=== PATIENT | female | born 1980 | race Caucasian/White ===

== ENCOUNTER 2016-09-15 21:26 | Emergency (ER) | payer BC ==
[2016-09-15 21:32] VITALS: BP 150/69
--- NOTE | 2016-09-15 21:42 | UC ---
Respiratory Complaint HPI - History of Current Complaint Chief Complaint: UCRespiratory Stated Complaint: SINUS Time Seen by Provider: 09/15/16 21:35 Hx Obtained From: Patient Hx Last Menstrual Period: 2 weeks ago ?: No Onset/Duration: Gradual Onset - congestion, cough, sore throat., Lasting Weeks - 2, Worse Since - yesterday with sinus pressure pain and earache. Timing: Constant Severity Initially: Mild Severity Currently: Moderate Character: Cough: Nonproductive Aggravating Factors: Recumbent Position Alleviating Factors: Bronchodilator Associated Signs And Symptoms: Positive: Chills, Wheezing, Nasal Congestion, Sinus Discomfort Related History: Seasonal Allergies - Risk Factors Pulmonary Embolism Risk Factors: Negative Cardiac Risk Factors: Negative Pseudomonas Risk Factors: Negative Tuberculosis Risk Factors: Negative - Allergies/Home Medications Allergies/Adverse Reactions: Allergies Allergy/AdvReac Type Severity Reaction Status Date / Time [facility] [[facility] Allergy Intermediate Hives Verified 09/15/16 21:32 Minocycline Allergy Hives Verified 09/15/16 21:32 PMH/Surg Hx/FS Hx/Imm Hx Respiratory History Of: Reports: Asthma - Surgical History Surgical History: None - Family History Known Family History: Positive: Hypertension, Respiratory Disease - asthma Negative: Cardiac Disease, Diabetes - Social History Occupation: Employed Full-time Lives: With Family Alcohol Use: Occasionally Substance Use Type: None Smoking Status (MU): Never Smoked Tobacco Have You Smoked in the Last Year: No Review of Systems Constitutional: Other - sweats. ENT: Sore Throat, Ear Ache, Nasal Discharge Respiratory: Cough All Other Systems Reviewed And Are Negative: Yes Physical Exam Triage Information Reviewed: Yes Appearance: No Pain Distress, Ill-Appearing - mild, Obese Vital Signs: Initial Vital Signs Temp 98.5 F 09/15/16 21:29 Pulse 93 09/15/16 21:29 Resp 16 09/15/16 21:29 BP 150/69 09/15/16 21:29 Pulse Ox 99 09/15/16 21:29 Vital Signs Reviewed: Yes Eyes: Positive: Conjunctiva Clear ENT: Positive: Pharynx normal, TMs normal Neck exam: Normal Respiratory: Positive: Wheezing - diffuse expiratory wheeze with cough Cardiovascular Exam: Normal Musculoskeletal Exam: Normal Neurological Exam: Normal Psychological Exam: Normal Skin Exam: Normal UC Diagnostic Evaluation - Laboratory O2 Sat by Pulse Oximetry: 99 Respiratory Course/Dx - Differential Dx/Diagnosis Differential Diagnosis/HQI/PQRI: Asthma, Lower Resp Infection, Sinusitis Provider Diagnoses: Acute URI. Acute sinusitis. Asthma with acute exacerbation. Discharge - Discharge Plan Condition: Stable Disposition: HOME Prescriptions: Albuterol HFA INHALER* [Ventolin HFA Inhaler*] 2 puff INH Q4H PRN #1 mdi PRN Reason: Wheezing Amoxicillin (*) [Amoxicillin 875 MG (*)] 875 mg PO BID #20 tab predniSONE TAB* [Deltasone TAB*] 20 mg PO DAILY #18 tab Patient Education Materials: Upper Respiratory Infection (ED), Bronchospasm (ED ), Prednisone (By mouth), Sinusitis (ED), Amoxicillin (By mouth) Referrals: Ana Paula Tafoya MD [Primary Care Provider] - 5 Days (May need to recheck blood pressure.)
[2016-09-15] MEDS ORDERED: Amoxicillin CAP* 500 MG PO ONE (21:45)
== END 2016-09-15 21:57 | disposition home or self-care (01) ==
LOC: UCCORT 21:26
DX: J06.9 Acute upper respiratory infection, unspecified (principal); J01.90 Acute sinusitis, unspecified; J45.901 Unspecified asthma with (acute) exacerbation; E66.9 Obesity, unspecified; Z88.1 Allergy status to other antibiotic agents
CPT/HCPCS: 99212; A9270-GY; G0463

== ENCOUNTER 2017-04-19 07:08 | Emergency (ER) | payer BC ==
[2017-04-19] MEDS ORDERED: predniSONE TAB* 20 MG PO ONE (07:33)
[2017-04-19] MEDS ORDERED: Albuterol 2.5 MG/3 ML NEB.SOL* (0.083%) INH ONE (07:33)
[2017-04-19] MEDS ORDERED: Ipratropium 0.5MG/2.5ML NEB* 0.5 MG/2.5 ML NEB.SOLN INH ONE (07:33)
--- NOTE | 2017-04-19 07:43 | UC ---
Respiratory Complaint HPI - HPI Summary HPI Summary: C/O URI x 1 week. Worsening since yesterday. Productive cough. Has asthma. Some sinus pain. - History of Current Complaint Chief Complaint: UCRespiratory Stated Complaint: COUGH CONGESTION Time Seen by Provider: 04/19/17 07:31 Hx Obtained From: Patient Hx Last Menstrual Period: 04/09/17 ?: No Onset/Duration: Sudden Onset, Lasting Weeks - 1, Worse Since - yesterday Timing: Constant Severity Initially: Mild Severity Currently: Severe Character: Cough: Productive - green thick sputum Aggravating Factors: Deep Breaths, Recumbent Position Alleviating Factors: Bronchodilator - no longer helping as well. Associated Signs And Symptoms: Positive: Dyspnea, Wheezing, URI, Nasal Congestion, Hoarseness, Sinus Discomfort - Allergies/Home Medications Allergies/Adverse Reactions: Allergies Allergy/AdvReac Type Severity Reaction Status Date / Time Cefaclor [From [facility]] Allergy Intermediate Hives Verified 04/19/17 07:16 Minocycline Allergy Hives Verified 04/19/17 07:16 Home Medications: Home Medications Levocetirizine Dihydrochloride [Xyzal Allergy 24Hr] 5 mg PO DAILY 04/19/17 [ History Confirmed 04/19/17] PMH/Surg Hx/FS Hx/Imm Hx Respiratory History: Asthma - Surgical History Surgical History: None - Family History Known Family History: Positive: Hypertension, Respiratory Disease - asthma Negative: Cardiac Disease, Diabetes - Social History Occupation: Employed Full-time Lives: With Family Alcohol Use: Rare Substance Use Type: None Smoking Status (MU): Never Smoked Tobacco Have You Smoked in the Last Year: No - Immunization History Most Recent Influenza Vaccination: MAR 2017 Review of Systems Constitutional: Fatigue ENT: Sore Throat, Sinus Pain/Tenderness Respiratory: Shortness Of Breath, Cough Is Patient Immunocompromised?: No All Other Systems Reviewed And Are Negative: Yes Physical Exam Triage Information Reviewed: Yes Appearance: No Pain Distress, Ill-Appearing, Obese Vital Signs: Initial Vital Signs Temp 98.4 F 04/19/17 07:19 Pulse 95 04/19/17 07:19 Resp 20 04/19/17 07:19 BP 129/66 04/19/17 07:19 Pulse Ox 98 04/19/17 07:19 Vital Signs Reviewed: Yes Eyes: Positive: Conjunctiva Clear ENT: Positive: Pharyngeal erythema, TMs normal Neck exam: Normal Respiratory: Positive: Lungs clear, Wheezing - expiratory wheeze with coughing Cardiovascular Exam: Normal Musculoskeletal Exam: Normal Neurological Exam: Normal Psychological Exam: Normal Skin Exam: Normal UC Diagnostic Evaluation - Laboratory O2 Sat by Pulse Oximetry: 98 Re-Evaluation - Re-Evaluation First Eval Re-Evaluation Time: 08:03 Change: Improved - Patient feels breathing is better after the nebulizer Respiratory Course/Dx - Differential Dx/Diagnosis Differential Diagnosis/HQI/PQRI: Asthma, Laryngitis, Lower Resp Infection, Sinusitis Provider Diagnoses: Acute URI. Acute sinusitis. Asthma with acute exacerbation Discharge - Discharge Plan Condition: Stable Disposition: HOME Prescriptions: Clarithromycin TAB* [Biaxin 500 MG TAB*] 500 mg PO BID #20 tab predniSONE TAB* [Deltasone TAB*] 20 mg PO DAILY #18 tab Patient Education Materials: Upper Respiratory Infection (ED), Sinusitis (ED), Clarithromycin (By mouth), Asthma (ED), Prednisone (By mouth) Referrals: Ana Paula Tafoya MD [Primary Care Provider] -
[2017-04-19 08:07] VITALS: BP 129/66
== END 2017-04-19 08:10 | disposition home or self-care (01) ==
LOC: UCCORT 07:08
DX: J06.9 Acute upper respiratory infection, unspecified (principal); J01.90 Acute sinusitis, unspecified; J45.901 Unspecified asthma with (acute) exacerbation; E66.9 Obesity, unspecified; Z88.1 Allergy status to other antibiotic agents
CPT/HCPCS: 99211; G0463; J7512; J7644

== ENCOUNTER 2018-01-05 08:31 | Emergency (ER) | payer BC ==
--- NOTE | 2018-01-05 08:42 | UC ---
Headache HPI - HPI Summary HPI Summary: 37 yo female presents with headache. She tells me that she has a hx of migraines at least once or twice a month and usually manages these with rest and OTC medications. She remembers one time many years ago that she had a very bad migraine and ended up having a sinus infection. 3 days ago she woke up with a migraine, which she says is her typical onset, focused on the b/l temporal regions. She took OTC excedrin with mild relief for the first few hours, but her headache returned. She rested, but her headache did not resolve. Yesterday her headache persisted, so she took more excedrin - again with mild relief for a few hours, but her headache returned. this morning her headache is still present - so she decided to seek medical eval. She endorses some sinus congestion over the last week, but wasn't sure if it was allergies or something more. Denies fever, chills, SOB, chest pain, palpitation, abdominal pain, n/v, vision changes, weakness, or numbness. - History Of Current Complaint Stated Complaint: HEADACHE Time Seen by Provider: 01/05/18 08:41 Hx Obtained From: Patient Hx Last Menstrual Period: 2 weeks ago Onset/Duration: Sudden Onset Pain Intensity: 7 Pain Scale Used: 0-10 Numeric Timing: Constant Character: Migraine Location of Headache: Temporal - Allergies/Home Medications Allergies/Adverse Reactions: Allergies Allergy/AdvReac Type Severity Reaction Status Date / Time [facility] Allergy Hives Verified 01/05/18 09:15 minocycline Allergy Hives Verified 01/05/18 09:15 PMH/Surg Hx/FS Hx/Imm Hx - Additional Past Medical History Additional PMH: Migraines - Surgical History Surgical History: None - Family History Known Family History: Positive: Hypertension, Respiratory Disease - asthma Negative: Cardiac Disease, Diabetes - Social History Lives: With Family Alcohol Use: Occasionally Substance Use Type: None Smoking Status (MU): Never Smoked Tobacco Have You Smoked in the Last Year: No - Immunization History Most Recent Influenza Vaccination: MAR 2017 Review of Systems Constitutional: Negative Skin: Negative Eyes: Negative ENT: Sinus Congestion, Sinus Pain/Tenderness Respiratory: Negative Cardiovascular: Negative Gastrointestinal: Negative Genitourinary: Negative Neurovascular: Negative Musculoskeletal: Negative Neurological: Headache Psychological: Negative All Other Systems Reviewed And Are Negative: Yes Physical Exam - Summary Physical Exam Summary: GENERAL: Obese. NAD. SKIN: No rashes, sores, or open wounds. HEENT: Head: AT/NC Eyes: PERRLA. EOM intact. Conjunctiva clear without inflammation or discharge. Ears: Hearing grossly normal. TMs intact, no bulging, erythema, or edema. Nose: Nasal mucosa pink and moist. TTP maxillary > frontal sinus. Throat: Posterior oropharynx without exudates, erythema, or tonsillar enlargement. Uvula midline. NECK: Supple. Nontender. No lymphadenopathy. CHEST: CTAB. No r/r/w. No accessory muscle use. Breathing comfortably and in no distress. CV: RRR. Without m/r/g. Pulses intact. Brisk cap refill. MSK: FROM in B/L UEs and LEs with symmetric strength. NEURO: A&Ox3. 3 word recall, remote, recent memory, ability to follow 2-step directions, and attention intact. CN II XII grossly intact. [id number] are intact. Gait with normal base. Romberg: maintains balance, no pronator drift. Normal speech. No facial drooping. PSYCH: Age appropriate behavior. Triage Information Reviewed: Yes Vital Signs: Vital Signs: Temp Pulse Resp BP Pulse Ox 98.8 F 79 12 120/78 100 01/05/18 09:12 01/05/18 09:12 01/05/18 09:12 01/05/18 09:45 01/05/18 09:12 Vital Signs Reviewed: Yes Headache Course/Dx - Course Course Of Treatment: Toradol 60mg given in clinic. Rx for amoxicillin for potential sinus infection. Advised to rest and continue drinking fluids. - Differential Dx/Diagnosis Provider Diagnoses: Migraine Discharge - Sign-Out/Discharge Documenting (check all that apply): Patient Departure - Discharge Plan Condition: Stable Disposition: HOME Patient Education Materials: Migraine Headache (ED) Referrals: Ana Paula Tafoya MD [Primary Care Provider] - Additional Instructions: If you develop a fever, shortness of breath, chest pain, new or worsening symptoms - please call your PCP or go to the ED. - Billing Disposition and Condition Condition: STABLE Disposition: Home
[2018-01-05] MEDS ORDERED: Ketorolac INJ* 60 MG/2 ML VIAL IM ONE (08:51)
[2018-01-05 09:46] VITALS: BP 120/78
== END 2018-01-05 09:45 | disposition home or self-care (01) ==
LOC: UCEAST 08:31
DX: G43.909 Migraine, unspecified, not intractable, without status migrainosus (principal); Z88.6 Allergy status to analgesic agent; Z82.49 Family history of ischemic heart disease and other diseases of the circulatory system; Z82.5 Family history of asthma and other chronic lower respiratory diseases
CPT/HCPCS: 90471; 99212; G0463; J1885

== ENCOUNTER 2018-04-29 11:40 | Emergency (ER) | payer BC ==
--- OUTSIDE RECORDS SUMMARY | 2018-04-29 12:17 | XMS REPORT | Continuity of Care Document ---
:1980 External Reference #:[id number] Author Name Katina Davey, HOSIERY BAGGER Address [address] [place] [address] Care Team Providers Name Role Phone Ana Paula Tafoya MD Care Team Information Residence Counselor Unavailable Payers Type Date Identification Numbers Payment Provider Subscriber Policy Number: [id number] [facility] Plan Galdino Omalley Group Number: [id number] [address] PayID: [id number] [place] [address] Effective: 2015 Policy Number: [id number] [employer] Galdino Omalley Expires: 2015 PayID: [id number] [address] [place] [address] Advance Directives Description No Information Available Problems Date Description Provider Status Onset: 04/19/2014 Mild major depression, single episode Ana Paula Tafoya MD Active Onset: 05/10/2013 Vitamin D deficiency Ana Paula Tafoya MD Active Onset: 05/10/2013 Elevated blood-pressure reading without Ana Paula Tafoya MD Active diagnosis of hypertension Onset: 12/15/2007 Allergic rhinitis due to pollen Ana Paula Tafoya MD Active Onset: 12/15/2007 Migraine with typical aura Ana Paula Tafoya MD Active Onset: 12/21/2015 Mild persistent asthma Ana Paula Tafoya MD Active Onset: 02/11/2018 Obesity Ana Paula Tafoya MD Active Onset: 02/11/2018 Electrocardiogram abnormal Ana Paula Tafoya MD Active Onset: 09/03/2017 Hypoglycemia Ana Paula Tafoya MD Active Onset: 09/03/2017 Heartburn Ana Paula Tafoya MD Active Onset: 07/31/2017 Lumbosacral spondylosis without Ana Paula Tafoya MD Active myelopathy Family History Date Family Member(s) Problem(s) Comments Onset: (age 47 Father Alcoholism Years) Mother Hypertension Mother Obesity Children 1 Siblings 7 Patient is the oldest of eight children : (age 27 First Brother due to Crushed Years) by a tree First Brother Hypertension Onset: (age 6 Fourth Brother Leukemia Years) Maternal Grandfather Stroke Onset: (age 63 Maternal Grandmother Emphysema Years) Social History Type Date Description Comments Sex Unknown Education Higest level completed, Bachelor's Degree Education Currently working on [employer] science Master's Degree Marital Status Lives With Daughter 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[employer]; 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 Hand Dominance RIGHT-handed Tobacco Use Start: Unknown Never Smoked Cigarettes Smoking Status Reviewed: 04/04/18 Never Smoked Cigarettes ETOH Use Rarely consumes alcohol Tobacco Use Start: Unknown Patient has never smoked Exercise Type/Frequency Does aerobics sporadically Contraceptive Methods Current methods include condoms Allergies, Adverse Reactions, Alerts Date Description Reaction Status Severity Comments 08/27/2014 Ceclor Active Hives 09/28/2011 Tetracyclines & Related Hives (From Web Specialist Active Office) Medications Medication Date Status Form Strength Qnty SIG Indications Ordering Provider Amoxicillin/Clav 04/04 Hx Tablets 875-125mg 20tab 1 by mouth J01.90 Digiovann ulanate s every 12 a, Potassium - hours for Katina, 04/14 10 days Sumatriptan 02/11 Active Tablets 50mg 27tab 1 by mouth G43.109 Adriane Tafoya s at onset of MD Ana Paula migraine - may repeat in 2 hours. Furosemide 11/06 Active Tablets 20mg 30tab 1 by mouth R60.9 Michelet s every day MD Ana Paula as needed Fluoxetine HCL 06/07 Active Capsules 40mg 30cap take one F32.0 s capsule by MD Ana Paula mouth every day. Asmanex 11/03 Active Aerosol 220mcg/In 1unit use 1 Canelo Tafoya h s inhalation MD Ana Paula Metered Doses daily (discard 45 days after opening) - Mometasone Active Suspension 50mcg/Act 51gm 2 sprays J30.1 Michelet Furoate / each MD Ana Paula nostril every day Famotidine Active Tablets 20mg one by R12 Unknown /0000 mouth once to twice a day as needed Celecoxib Active Capsules 200mg 30cap 1 by mouth M47.817 Michelet, / s once daily MD Ana Paula as needed Excedrin Active Tablets 250-250-6 one tab Unknown Migraine / 5mg daily as needed Cyclobenzaprine 02/25 Hx Tablets 10mg 30tab take 1 Digiovann HCL /2016 s tablet by a, - mouth every Katina, 09/03 8 hours as needed for pain Naproxen Sodium 02/25 Hx Tablets 550mg 60tab 1 by mouth Digiovann /2016 s every 12 a, - hours for 2 Katina, 07/31 weeks then HOSIERY BAGGER as needed Amoxicillin/Clav 02/07 Hx Tablets 875-125mg 20tab 1 by mouth J01.90 Taz ulanate s twice a day Ansley barroso Potassium - MD 02/17 Azithromycin 07/25 Hx Tablets 500mg 7tabs 1 by mouth J01.90 Ely, every day Grady Atkinson DO 01/31 Azithromycin 06/22 Hx Tablets 250mg 6tabs 2 by mouth J01.90 , today, then MD Ana Paula - 1 by mouth 12/20 daily x more days Fluticasone 11/15 Hx Suspension 50mcg/Act 16uni instill 2 Michelet Propionate ts sprays in MD Ana Paula - each 09/03 nostril /2017 every day as needed Butalbital/Aceta 11/03 Hx Tablets 50-325-40 30tab 1 tap by G43.109 Michelet minophen/Caffein /2014 mg s mouth q2 MD Ana Paula e - hours as 02/11 headache Fluoxetine HCL 11/03 Hx Capsules 10mg 90cap 3 po daily F32.0 Michelet s x 2 weeks MD Ana Paula - then if 06/07 doing well, 2 po daily x 2 weeks then if doing well, 1 po daily Amoxicillin 08/27 Hx Tablets 875mg 20tab 1 by mouth 461.9 Digiovann s twice a day a, - for 10 days Freddie 09/06 Asmanex 07/11 Hx Aerosol 220mcg/In 1unit inhale 1 Canelo Tafoya 30 h s puff every MD Ana Paula Tered Doses - day 11/03 Flonase 05/21 Hx Suspension 50mcg/Act 16uni instill 2 ts sprays in MD Ana Paula - each 06/07 nostril every day as needed Toprol XL 04/16 Hx Tablets ER 25mg 30tab 1 PO qd Michelet 24HR s MD Ana Paula - 06/07 Arcet 02/23 Hx Tablets 30tab take 1 Michelet s tablet by MD Ana Paula - mouth every 11/03 2 hours as needed for migraine(ma x daily 6 tablets) Astelin 06/09 Hx Solution 137mcg/Sp 30uni use 2 ray ts sprays in MD Ana Paula - each 06/07 nostr twice daily as needed Fexofenadine HCL 06/09 Hx Tablets 60mg 60tab 1bid - Take s One Tablet MD Ana Paula - By Mouth 09/03 Twice Daily Fluoxetine HCL Hx Capsules 40mg 90cap 1 by mouth 296.21 Unknown /0000 s every day - 11/03 Methocarbamol Hx Tablets 500mg 1 by mouth Unknown /0000 tid as - needed 09/03 Immunizations CPT Code Status Date Vaccine Reaction Lot # [id number] Given 03/04/2018 Afluria Or Fluvirin Flu Vac Intramuscular 19963 Given 04/02/2017 Afluria Or Fluvirin Flu Vac Intramuscular 37176 Given 01/25/2016 MMR Virus Immunization [id number] 13601 Given 05/06/2012 Tdap (Adacel) Ages 7 And Above VIS DATE 06/25/11 Only 98045 Given 04/16/2010 Afluria Or Fluvirin Flu Vac Intramuscular 50417 Given 05/21/2004 Immunization Td 7 Yrs Or Older Vital Signs Date Vital Result Comment 04/04/2018 10:03am Body Temperature 99.3 F tympanic Weight 344.44 lb Heart Rate 80 /min BP Systolic 130 mmHg BP Diastolic 86 mmHg Respiratory Rate 18 /min Height 66.75 inches 5'6.75" 02/11/18 ,PREANALYTICS TEAM LEAD O2 % BldC Oximetry 97 % Room Air BMI (Body Mass Index) 54.3 kg/m2 02/11/2018 9:10am Weight 341.00 lb Heart Rate 78 /min BP Systolic 128 mmHg BP Diastolic 84 mmHg Respiratory Rate 16 /min Height 66.75 inches 5'6.75" 02/11/18 SA,PREANALYTICS TEAM LEAD BMI (Body Mass Index) 53.8 kg/m2 Last Menstrual Period [id number] 02/11/18 SA,PREANALYTICS TEAM LEAD 11/06/2017 2:24pm Weight 366.00 lb Heart Rate 80 /min BP Systolic 130 mmHg BP Diastolic 86 mmHg Respiratory Rate 18 /min Height 67.5 inches 5'7.50" 07/31/17 BMI (Body Mass Index) 56.5 kg/m2 09/03/2017 10:28am Weight 331.00 lb Heart Rate 84 /min BP Systolic 128 mmHg BP Diastolic 88 mmHg Respiratory Rate 18 /min Height 67.5 inches 5'7.50" 07/31/17 BMI (Body Mass Index) 51.1 kg/m2 07/31/2017 9:16am Weight 329.00 lb Heart Rate 80 /min BP Systolic 132 mmHg BP Diastolic 82 mmHg Respiratory Rate 18 /min Height 67.5 inches 5'7.50" 07/31/17 BMI (Body Mass Index) 50.8 kg/m2 02/25/2017 9:16am Body Temperature 97.5 F Weight 314.38 lb Heart Rate 88 /min BP Systolic 132 mmHg BP Diastolic 76 mmHg Respiratory Rate 18 /min Height 67.5 inches 5'7.50" 01/31/17 BMI (Body Mass Index) 48.5 kg/m2 02/07/2017 3:08pm Body Temperature 98.7 F Weight 316.00 lb Heart Rate 91 /min BP Systolic 120 mmHg BP Diastolic 76 mmHg Respiratory Rate 18 /min Height 67.5 inches 5'7.50" 01/31/17 O2 % BldC Oximetry 97 % BMI (Body Mass Index) 48.8 kg/m2 01/31/2017 1:34pm Weight 305.00 lb Heart Rate 76 /min BP Systolic 122 mmHg BP Diastolic 72 mmHg Respiratory Rate 18 /min Height 67.5 inches 5'7.50" 01/31/17 BMI (Body Mass Index) 47.1 kg/m2 07/25/2016 3:59pm Body Temperature 99.8 F Weight 305.00 lb Heart Rate 90 /min BP Systolic 140 mmHg BP Diastolic 72 mmHg BP Systolic Recheck 130 mmHg BP Diastolic Recheck 72 mmHg Respiratory Rate 24 /min Height 67.5 inches 5'7.50" BMI (Body Mass Index) 47.1 kg/m2 01/25/2016 4:17pm Weight 301.00 lb Heart Rate 104 /min BP Systolic 122 mmHg BP Diastolic 80 mmHg Respiratory Rate 20 /min Height 67.5 inches 5'7.50" BMI (Body Mass Index) 46.4 kg/m2 12/21/2015 4:05pm Weight 301.00 lb Heart Rate 68 /min BP Systolic 112 mmHg BP Diastolic 80 mmHg Respiratory Rate 18 /min Height 67.5 inches 5'7.50" BMI (Body Mass Index) 46.4 kg/m2 06/22/2015 10:03am Body Temperature 98.9 F Weight 293.00 lb Heart Rate 96 /min BP Systolic 120 mmHg BP Diastolic 70 mmHg Respiratory Rate 18 /min Height 67.5 inches 5'7.50" O2 % BldC Oximetry 96 % BMI (Body Mass Index) 45.2 kg/m2 06/07/2015 10:24am Weight 290.00 lb Heart Rate 76 /min BP Systolic 130 mmHg BP Diastolic 78 mmHg Respiratory Rate 18 /min Height 67.5 inches 5'7.50" BMI (Body Mass Index) 44.7 kg/m2 11/03/2014 8:23am Weight 280.00 lb Heart Rate 68 /min BP Systolic 112 mmHg BP Diastolic 72 mmHg Respiratory Rate 18 /min Height 67.5 inches 5'7.50" BMI (Body Mass Index) 43.2 kg/m2 08/27/2014 11:24am Body Temperature 98.9 F Weight 296.25 lb Heart Rate 72 /min BP Systolic 120 mmHg BP Diastolic 72 mmHg Respiratory Rate 18 /min 04/19/2014 8:05am Weight 290.00 lb Down #40 Heart Rate 72 /min BP Systolic 130 mmHg BP Diastolic 80 mmHg Respiratory Rate 18 /min Height 67 inches 5'7" 09/21/2013 8:20am BP Systolic 122 mmHg BP Diastolic 82 mmHg 09/21/2013 8:20am Weight 330.00 lb Heart Rate 78 /min BP Systolic 150 mmHg BP Diastolic 82 mmHg Respiratory Rate 24 /min Height 67 inches 5'7" 05/10/2013 2:38pm Weight 338.00 lb Heart Rate 80 /min BP Systolic 134 mmHg BP Diastolic 80 mmHg Respiratory Rate 18 /min Height 67.25 inches 5'7.25" (Done On 06/09/12) 04/16/2013 8:11am BP Systolic 132 mmHg BP Diastolic 90 mmHg 04/16/2013 8:11am Weight 352.00 lb Heart Rate 92 /min BP Systolic 134 mmHg BP Diastolic 92 mmHg Respiratory Rate 20 /min Height 67.25 inches 5'7.25" (Done On 06/09/12) 07/25/2012 9:20am Body Temperature 97.8 F Weight 328.00 lb Heart Rate 80 /min BP Systolic 132 mmHg BP Diastolic 80 mmHg Respiratory Rate 20 /min Height 67.25 inches 5'7.25" 06/09/2012 3:27pm BP Systolic 120 mmHg BP Diastolic 78 mmHg 06/09/2012 3:27pm Body Temperature 98.9 F Weight 334.00 lb Heart Rate 112 /min BP Systolic 166 mmHg BP Diastolic 100 mmHg Respiratory Rate 20 /min Height 67.25 inches 5'7.25" O2 % BldC Oximetry 98 % 05/27/2012 9:18am Body Temperature 99.4 F Weight 331.00 lb Heart Rate 96 /min BP Systolic 136 mmHg BP Diastolic 70 mmHg Respiratory Rate 18 /min Height 66.5 inches 5'6.50" (Done On 08/07/11) O2 % BldC Oximetry 97 % 05/06/2012 8:30am Weight 327.00 lb Heart Rate 100 /min BP Systolic 132 mmHg BP Diastolic 80 mmHg Respiratory Rate 18 /min Height 66.5 inches 5'6.50" (Done On 08/07/11) 02/13/2012 3:52pm Body Temperature 98.6 F Weight 327.00 lb Heart Rate 76 /min BP Systolic 130 mmHg BP Diastolic 70 mmHg Respiratory Rate 18 /min 09/28/2011 9:47am Body Temperature 97.0 F Weight 322.00 lb Heart Rate 78 /min BP Systolic 124 mmHg BP Diastolic 82 mmHg Respiratory Rate 19 /min O2 % BldC Oximetry 98 % Ra 2011 3:47pm Body Temperature 98.2 F Weight 332.50 lb Heart Rate 80 /min BP Systolic 108 mmHg BP Diastolic 74 mmHg Respiratory Rate 20 /min Height 66.5 inches 5'6.50" O2 % BldC Oximetry 97 % 05/23/2011 1:42pm Body Temperature 98.9 F Weight 335.00 lb Heart Rate 104 /min BP Systolic 146 mmHg BP Diastolic 84 mmHg Respiratory Rate 20 /min Height 67 inches 5'7" (Done On 08/09/10) O2 % BldC Oximetry 98 % 05/03/2011 8:23am Weight 333.00 lb Heart Rate 102 /min BP Systolic 132 mmHg BP Diastolic 80 mmHg Respiratory Rate 18 /min Height 67 inches 5'7" (Done On 08/09/10) 01/21/2011 9:36am Body Temperature 97.7 F Weight 315.00 lb Heart Rate 90 /min BP Systolic 128 mmHg BP Diastolic 86 mmHg Respiratory Rate 17 /min Height 67 inches 5'7" (Done On 08/09/10) O2 % BldC Oximetry 98 % Ra 12/06/2010 9:19am Weight 312.00 lb Heart Rate 84 /min BP Systolic 130 mmHg BP Diastolic 84 mmHg Respiratory Rate 20 /min Height 67 inches 5'7" (Done On 08/09/10) 08/09/2010 11:35am Body Temperature 98.4 F Weight 332.00 lb Heart Rate 100 /min BP Systolic 144 mmHg BP Diastolic 84 mmHg Respiratory Rate 20 /min Height 67 inches 5'7" O2 % BldC Oximetry 98 % 05/19/2010 10:07am Body Temperature 97.8 F Weight 336.00 lb Heart Rate 80 /min BP Systolic 136 mmHg BP Diastolic 76 mmHg 04/16/2010 4:07pm BP Systolic 132 mmHg BP Diastolic 82 mmHg 04/16/2010 4:07pm Weight 337.00 lb Heart Rate 88 /min BP Systolic 152 mmHg BP Diastolic 84 mmHg Respiratory Rate 18 /min Height 67 inches 5'7" 03/17/2010 9:50am Body Temperature 98.1 F Weight 330.00 lb Heart Rate 76 /min BP Systolic 122 mmHg l arm BP Diastolic 74 mmHg l arm Respiratory Rate 18 /min 09/13/2009 9:36am Body Temperature 97.6 F Weight 342.00 lb Heart Rate 92 /min BP Systolic 120 mmHg BP Diastolic 78 mmHg Respiratory Rate 20 /min O2 % BldC Oximetry 98 % 08/28/2009 11:36am Body Temperature 98.6 F Weight 344.00 lb Heart Rate 102 /min BP Systolic 130 mmHg BP Diastolic 80 mmHg Respiratory Rate 20 /min Height 67 inches 5'7" O2 % BldC Oximetry 97 % 06/09/2009 4:04pm Body Temperature 98.4 F Weight 341.00 lb Heart Rate 88 /min BP Systolic 132 mmHg RIGHT BP Diastolic 88 mmHg RIGHT Respiratory Rate 16 /min 05/20/2009 9:30am Body Temperature 98.9 F Weight 237.00 lb Heart Rate 78 /min BP Systolic 128 mmHg BP Diastolic 80 mmHg Respiratory Rate 24 /min O2 % BldC Oximetry 98 % 07/26/2008 10:08am Weight 304.00 lb Heart Rate 84 /min BP Systolic 118 mmHg BP Diastolic 80 mmHg Respiratory Rate 18 /min 07/15/2008 11:19am Body Temperature 98.5 F Weight 299.00 lb Heart Rate 104 /min BP Systolic 130 mmHg BP Diastolic 74 mmHg Respiratory Rate 20 /min Height 67 inches 5'7" 03/24/2008 8:30am Weight 280.00 lb Heart Rate 80 /min BP Systolic 108 mmHg BP Diastolic 70 mmHg Respiratory Rate 15 /min Height 67 inches 5'7" 12/15/2007 8:25am Weight 269.00 lb Down 9 LBS Heart Rate 84 /min BP Systolic 120 mmHg BP Diastolic 80 mmHg Height 67 inches 5'7" 10/01/2007 9:35am Body Temperature 98.3 F Weight 278.00 lb Heart Rate 84 /min BP Systolic 132 mmHg BP Diastolic 82 mmHg Respiratory Rate 22 /min Height 67 inches 5'7" 09/01/2007 8:32am Weight 292.00 lb Heart Rate 88 /min BP Systolic 140 mmHg BP Diastolic 74 mmHg Height 67 inches 5'7" 08/15/2007 9:27am Body Temperature 97.8 F Weight 298.00 lb Heart Rate 74 /min BP Systolic 116 mmHg BP Diastolic 68 mmHg Respiratory Rate 18 /min Height 67 inches 5'7" O2 % BldC Oximetry 98 % 05/25/2007 10:01am Weight 307.00 lb Heart Rate 74 /min BP Systolic 122 mmHg BP Diastolic 74 mmHg Respiratory Rate 16 /min Height 67 inches 5'7" 02/03/2007 11:15am Body Temperature 98.0 F Weight 302.00 lb Heart Rate 100 /min BP Systolic 114 mmHg L/LG BP Diastolic 72 mmHg L/LG Respiratory Rate 20 /min Height 67 inches 5'7" 08/26/2006 9:15am Body Temperature 97.4 F Weight 296.00 lb Heart Rate 88 /min BP Systolic 11 mmHg BP Diastolic 64 mmHg Respiratory Rate 14 /min Height 67 inches 5'7" 07/15/2006 10:30am Body Temperature 98.2 F Weight 288.00 lb Heart Rate 92 /min BP Systolic 110 mmHg BP Diastolic 70 mmHg Respiratory Rate 16 /min Height 67 inches 5'7" 06/26/2006 9:23am Body Temperature 97.0 F Weight 285.00 lb Heart Rate 84 /min BP Systolic 114 mmHg BP Diastolic 74 mmHg Respiratory Rate 20 /min Height 67 inches 5'7" 04/07/2006 9:34am Body Temperature 97.3 F Weight 279.00 lb Heart Rate 88 /min BP Systolic 120 mmHg BP Diastolic 74 mmHg Respiratory Rate 20 /min O2 % BldC Oximetry 96 % Room Air @ Rest 03/06/2006 11:31am Body Temperature 98.4 F Weight 266.00 lb Heart Rate 84 /min BP Systolic 110 mmHg BP Diastolic 70 mmHg Respiratory Rate 14 /min 02/25/2006 3:23pm Body Temperature 99.5 F Weight 270.00 lb Heart Rate 84 /min BP Systolic 110 mmHg BP Diastolic 76 mmHg Respiratory Rate 18 /min 10/02/2005 10:40am Weight 284.00 lb Heart Rate 76 /min BP Systolic 100 mmHg BP Diastolic 72 mmHg Respiratory Rate 14 /min 09/18/2005 11:27am Body Temperature 97.9 F Weight 281.00 lb Heart Rate 80 /min BP Systolic 110 mmHg BP Diastolic 74 mmHg Respiratory Rate 12 /min 09/13/2004 10:15am Body Temperature 98.1 F Weight 211.00 lb Heart Rate 74 /min BP Systolic 110 mmHg BP Diastolic 70 mmHg Respiratory Rate 18 /min Results Test Date Facility Test Result H/L Range Note GC/Chlamydia By 02/11/2018 [facility] Chlamydia by Dna NEGATIVE Negative Dna Probe Probe GC by Dna Probe NEGATIVE Negative Laboratory test 02/11/2018 [facility] NT Pro BNP 37 pg/mL (0-125) 1, 2 finding Laboratory test 02/11/2018 [facility] Rapid Plasma NEGATIVE (Neg) 3 finding Reagin Laboratory test 02/11/2018 [facility] Hepatitis C NON REACTIVE Non Reactive 4 finding Virus Antibody S/CORatio(Darrius HIV Combo By Eia 02/11/2018 [facility] Press Setup Operator HIV NON REACTIVE Non Reactive Combo Laboratory test 01/30/2018 [facility] Esr 20 mm/hr 0-20 5 finding Laboratory test 01/30/2018 [facility] TSH 2.05 uIU/mL 0.35-4.94 finding Comprehensive Met 01/30/2018 [facility] Sodium 138 mmol/L 135-146 6 Panel-FCMG Potassium 3.8 mmol/L 3.5-5.2 Chloride# 103 mmol/L 97-110 7 Carbon Dioxide 26 mmol/L 24-34 Glucose 105 mg/dL 70-105 BUN 11 mg/dL 6-26 Creatinine 0.7 mg/dL 0.5-1.4 Calcium 9.1 mg/dL 8.5-10.2 Total Protein 6.0 g/dL 6.0-8.0 Albumin 3.8 g/dL 3.6-4.9 Globulin 2.2 g/dL 2.0-3.5 A/G Ratio 1.7 Ratio 1.0-2.2 Total Bilirubin 0.4 mg/dL 0.1-1.3 Alkaline Phosphatase 74 U/L 24-140 Alt 12 U/L 3-42 Ast 15 U/L 8-42 Prabha Egfr >60 >60 8 Non Prabha Egfr >60 >60 9 Anion Gap 9 mmol/L 5-15 10 CBC with Auto Diff-fcmg 01/30/2018 [facility] WBC 8.7 K/uL 4.1-11.0 RBC 4.24 M/uL 4.00-5.40 Hemoglobin 12.2 gm/dL 12.0-16.0 Hematocrit 36.8 % 36.0-47.0 MCV 86.7 fL 80.0-97.0 MCH 28.8 pg 27.0-32.0 MCHC 33.3 g/dL 32.0-36.0 RDW 13.6 % 11.5-14.5 PLT Count 246 K/ul 140-400 MPV 8.5 FL 7.1-10.7 Neutrophil 64.1 % 35.0-75.0 Lymphocyte 26.8 % 16.0-52.0 Monocyte 7.2 % 2.0-10.0 Eosinophil 1.6 % 0.0-5.0 Basophil 0.3 % 0.0-4.0 Abs Neutrophils 5.6 K/uL 2.1-8.0 Abs Lymphocytes 2.3 K/uL 0.8-5.5 Abs Monocytes 0.6 K/uL 0.1-1.0 Abs Eosinophils 0.1 K/uL 0.0-0.5 Abs Basophils 0.0 K/uL 0.0-0.3 Laboratory test finding 09/03/2017 [facility] Cortisol 3.1 g/dL 11 Hepatic Panel (LFT) 09/03/2017 [facility] Total Protein 6.1 g/dL 6.0-8.0 Albumin 4.1 g/dL 3.6-4.9 Total Bilirubin 0.4 mg/dL 0.1-1.3 Direct Bilirubin 0.1 mg/dL 0.0-0.4 Alkaline Phosphatase 68 U/L 24-140 Alt 15 U/L 3-42 Ast 14 U/L 8-42 Hemoglobin A1c 09/03/2017 [facility] Hemoglobin A1c 5.2 % 4.1-5.9 Estimated Average Glucose Calc 103 mg/dL 71-140 Laboratory test finding 09/03/2017 [facility] TSH 2.33 uIU/mL 0.35-4.94 Basic (BMP) 09/03/2017 [facility] Sodium 139 mmol/L 135-146 12 Potassium 4.5 mmol/L 3.5-5.2 Chloride# 103 mmol/L 97-110 13 Carbon Dioxide 25 mmol/L 24-34 Glucose 82 mg/dL 70-105 BUN 11 mg/dL 6-26 Creatinine 0.6 mg/dL 0.5-1.4 Calcium 9.1 mg/dL 8.5-10.2 Non Prabha Egfr >60 >60 14 Prabha Egfr >60 >60 15 Anion Gap 11 mmol/L 5-15 16 CBC with Auto Diff-fcmg 09/03/2017 [facility] WBC 7.5 K/uL 4.1-11.0 RBC 4.52 M/uL 4.00-5.40 Hemoglobin 13.1 gm/dL 12.0-16.0 Hematocrit 39.2 % 36.0-47.0 MCV 86.7 fL 80.0-97.0 MCH 28.9 pg 27.0-32.0 MCHC 33.3 g/dL 32.0-36.0 RDW 13.9 % 11.5-14.5 PLT Count 253 K/ul 140-400 MPV 8.2 FL 7.1-10.7 Neutrophil 66.2 % 35.0-75.0 Lymphocyte 23.3 % 16.0-52.0 Monocyte 8.0 % 2.0-10.0 Eosinophil 2.0 % 0.0-5.0 Basophil 0.5 % 0.0-4.0 Abs Neutrophils 5.0 K/uL 2.1-8.0 Abs Lymphocytes 1.8 K/uL 0.8-5.5 Abs Monocytes 0.6 K/uL 0.1-1.0 Abs Eosinophils 0.2 K/uL 0.0-0.5 Abs Basophils 0.0 K/uL 0.0-0.3 GC/Chlamydia By Dna 01/31/2017 [facility] Chlamydia by Dna NEGATIVE Negative Probe Probe GC by Dna Probe NEGATIVE Negative Treponema 01/31/2017 [facility] Treponema Igg/Igm NEGATIVE (Neg) 17 Igg/Igm-RL @ HIV Combo By Eia 01/31/2017 [facility] Press Setup Operator HIV NON REACTIVE Non Reactive Combo Lipid 01/31/2017 [facility] Cholesterol 156 mg/dL 50-199 Triglycerides 86 mg/dL 30-200 HDL 44 mg/dL 35-85 18 Chol/ HDL Ratio 3.5 ratio Low 3.7-5.6 VLDL 17 mg/dL 2-29 LDL (Calc) 94 mg/dL 20-99 19 Laboratory test finding 01/31/2017 [facility] Vit D25oh 56 ng/mL 31-100 Laboratory test finding 01/31/2017 [facility] TSH 2.22 uIU/mL 0.35-4.94 CBC With Auto Diff 01/31/2017 [facility] WBC 7.8 K/uL 4.1-11.0 RBC 4.60 M/uL 4.00-5.40 Hemoglobin 13.5 gm/dL 12.0-16.0 Hematocrit 40.6 % 36.0-47.0 MCV 88.3 fL 80.0-97.0 MCH 29.3 pg 27.0-32.0 MCHC 33.1 g/dL 32.0-36.0 RDW 13.4 % 11.5-14.5 PLT Count 222 K/ul 140-400 Neutrophil 64.8 % 35.0-75.0 Lymphocyte 25.2 % 16.0-52.0 Monocyte 7.4 % 2.0-10.0 Eosinophil 2.3 % 0.0-5.0 Basophil 0.3 % 0.0-4.0 Abs Neutrophils 5.0 K/uL 2.1-8.0 Abs Lymphocytes 2.0 K/uL 0.8-5.5 Abs Monocytes 0.6 K/uL 0.1-1.0 Abs Eosinophils 0.2 K/uL 0.0-0.5 Abs Basophils 0.0 K/uL 0.0-0.3 Comprehensive Met Panel-FCMG 01/31/2017 [facility] Sodium 137 mmol/L 135- 146 20 Potassium 4.2 mmol/L 3.5-5.2 Chloride# 102 mmol/L 97-110 21 Carbon Dioxide 25 mmol/L 24-34 Glucose 78 mg/dL 70-105 BUN 12 mg/dL 6-26 Creatinine 0.7 mg/dL 0.5-1.4 Calcium 9.9 mg/dL 8.5-10.2 Total Protein 6.6 g/dL 6.0-8.0 Albumin 4.2 g/dL 3.6-4.9 Globulin 2.4 g/dL 2.0-3.5 A/G Ratio 1.8 Ratio 1.0-2.2 Total Bilirubin 0.4 mg/dL 0.1-1.3 Alkaline Phosphatase 49 U/L 24-140 Alt 13 U/L 3-42 Ast 15 U/L 8-42 Prabha Egfr >60 >60 22 Non Prabha Egfr >60 >60 23 Anion Gap 10 mmol/L 7-16 24 Laboratory test finding 01/25/2016 [facility] Surgical Path [facility] SEE NOTE 25 Laboratory test finding 01/12/2016 [facility] Measles Igm AB 0.31 26 Mumps Igg (Immune) POSITIVE AI 27 Rubella Igg AB POSITIVE AI 28 CBC With Auto Diff 11/03/2014 [facility] WBC 5.8 K/uL 4.1-11.0 29 RBC 4.55 M/uL 4.00-5.40 Hemoglobin 13.9 gm/dL 12.0-16.0 Hematocrit 41.4 % 36.0-47.0 MCV 90.9 fL 80.0-97.0 MCH 30.4 pg 27.0-32.0 MCHC 33.5 g/dL 32.0-36.0 RDW 13.5 % 11.5-14.5 PLT Count 198 K/ul 140-400 Neutrophil 65.8 % 35.0-75.0 Lymphocyte 22.2 % 16.0-52.0 Monocyte 9.7 % 2.0-10.0 Eosinophil 1.8 % 0.0-5.0 Basophil 0.5 % 0.0-4.0 Abs Neutrophils 3.8 K/uL 2.1-8.0 Abs Lymphocytes 1.3 K/uL 0.8-5.5 Abmon 0.6 K/uL 0.1-1.0 Abs Eosinophils 0.1 K/uL 0.0-0.5 Abs Basophils 0.0 K/uL 0.0-0.3 Comprehensive Metabolic (CMP) 11/03/2014 [facility] Sodium 136 mmol/L 134- 142 Potassium 4.0 mmol/L 3.5-5.2 Chloride 104 mmol/L 97-109 Carbon Dioxide 27 mmol/L 24-34 Glucose 90 mg/dL 70-105 BUN 9 mg/dL 6-26 Creatinine 0.6 mg/dL 0.5-1.4 Calcium 8.7 mg/dL 8.5-10.2 Total Protein 6.2 g/dL 6.0-8.0 Albumin 4.1 g/dL 3.6-4.9 Globulin 2.1 g/dL 2.0-3.5 A/G Ratio 2.0 Ratio 1.0-2.2 Total Bilirubin 0.5 mg/dL 0.1-1.3 Alkaline Phosphatase 49 U/L 24-140 Alt 14 U/L 3-42 Ast 14 U/L 8-42 Anion Gap 9 mmol/L 6-14 Prabha Egfr >60 >60 30 Non Prabha Egfr >60 >60 31 Laboratory test finding 11/03/2014 [facility] TSH 1.99 uIU/mL 0.35-4.94 Vit D,25 Hydroxy 63 ng/mL 31-100 HIV Combo NON REACTIVE Laboratory test 11/03/2014 [facility] Pap Smear Thin Prep SEE NOTE - nl 32 finding Laboratory test 11/03/2014 [facility] 33 finding [phone] [facility] <SEE NOTE> Laboratory test 04/16/2013 N2N/CCD Import Acetylcholine < 0.03 nmol/L 0.00- 34 finding Receptor AB 0.24 Achr Blocking Ab, Serum 19 % 0-25 35 [facility]chr Modulating Ab, Serum < 12 % 0-20 36 Alb/Glob 1.2 ratio Albumin 3.7 g/dL 3.5-5.0 Alkaline Phosphatase 88 U/L 50-136 Anion Gap 11 mEq/L 8-16 BUN 8 mg/dL 5-23 BUN/Creat 26.6 ratio Bas% 0.1 % 0.0-1.1 Baso # 0.01 K/uL 0.0-0.1 Bilirubin,Total 0.5 mg/dL 0.2-1.2 Calcium 8.8 mg/dL 8.5-10.1 Carbon Dioxide 27 mEq/L 18-29 Chloride 105 mmol/L 98-107 Creatinine 0.3 mg/dL Low 0.5-1.4 Eo% 1.9 % 0.0-6.6 Eos # 0.14 K/uL 0.0-0.5 Globulin 3.1 g/dL 1.9-4.3 Glom Filtration Rate, Estimate >60 mL/min >60 Glucose 78 mg/dL 76-115 Hematocrit 39.8 % 36.0-46.1 Hemoglobin 13.5 gm/dL 11.6-15.8 If >60 mL/min >60 37 Lymph # 1.89 K/uL 0.8-3.4 Lymph % 25.9 % 17.0-46.1 Mean Cell Volume 88.6 fl 80.9-99.0 Mean Corpuscular HGB 30.1 pg 25.9-32.7 Mean Corpuscular HGB Conc 33.9 g/dL 30.8-34.3 Mean Platelet Volume 11.0 fL 8.9-12.4 Hitchcock # 0.52 K/uL 0.3-0.9 Hitchcock % 7.1 % 4.3-13.2 Neut# 4.75 K/uL 1.0-7.0 Neut% 65.0 % 40.4-72.8 Platelet Count 257 K/uL 155-360 Potassium 4.6 mmol/L 3.5-5.1 Red Blood Count 4.49 M/uL 3.90-5.40 Red Cell Distri Width %CV 13.0 % 11.7-14.4 Red Cell Distri Width SD 41.7 fl 3-47 SGPT/Alt 24 U/L Low 30-65 Sgot/Ast 32 U/L 16-40 Sodium 138 mmol/L 136-145 Thyroid Stim Hormone 3.40 uIU/mL 0.49-4.67 38 Total Protein 6.8 g/dL 6.3-8.0 Vitamin D,25-Hydroxy 25.9 ng/mL Low 30.0-100.0 39 White Blood Count 7.3 K/uL 3.1-10.7 LDL Cholesterol Profile 04/16/2013 N2N/CCD Import Cholesterol 151 mg/dL 120-200 HDL Cholesterol 50 mg/dL 29-83 LDL-Cholesterol 75 mg/dL 62-185 Triglycerides 128 mg/dL 16-231 Dna Probe N. Gregoryo & 05/06/2012 N2N/CCD Import Dna Probe For See Note 40 C. Trach. Chlamydia Trac. GC Probe See Note 41 Laboratory test finding 05/06/2012 N2N/CCD Import Anion Gap 11 mEq/L 8- 16 Antibody Detection See Note 42 BUN 10 mg/dL 5-23 BUN/Creat 14.2 ratio Bas% 0.2 % 0.0-1.1 Baso # 0.02 K/uL 0.0-0.1 Calcium 9.0 mg/dL 8.5-10.1 Carbon Dioxide 28 mEq/L 18-29 Chloride 103 mmol/L 98-107 Creatinine 0.7 mg/dL 0.5-1.4 Eo% 1.7 % 0.0-6.6 Eos # 0.14 K/uL 0.0-0.5 Glom Filtration Rate, Estimate >60 mL/min >60 Glucose 55 mg/dL Low 76-115 Hematocrit 40.4 % 36.0-46.1 Hemoglobin 13.3 gm/dL 11.6-15.8 If >60 mL/min >60 43 Lymph # 1.96 K/uL 0.8-3.4 Lymph % 23.9 % 17.0-46.1 Mean Cell Volume 90.4 fl 80.9-99.0 Mean Corpuscular HGB 29.8 pg 25.9-32.7 Mean Corpuscular HGB Conc 32.9 g/dL 30.8-34.3 Mean Platelet Volume 11.2 fL 8.9-12.4 Hitchcock # 0.68 K/uL 0.3-0.9 Hitchcock % 8.3 % 4.3-13.2 Neut# 5.40 K/uL 1.0-7.0 Neut% 65.9 % 40.4-72.8 Platelet Count 229 K/uL 155-360 Potassium 4.3 mmol/L 3.5-5.1 Rapid Plasma Reagin Nonreactive Nonreactive 44 Red Blood Count 4.47 M/uL 3.90-5.40 Red Cell Distri Width %CV 13.7 % 11.7-14.4 Red Cell Distri Width SD 44.2 fl 3-47 SGPT/Alt 25 U/L Low 30-65 45 Sgot/Ast 15 U/L Low 16-40 46 Sodium 138 mmol/L 136-145 Thyroid Stim Hormone 2.85 uIU/mL 0.49-4.67 47 White Blood Count 8.2 K/uL 3.1-10.7 LDL Cholesterol Profile 05/06/2012 N2N/CCD Import Cholesterol 138 mg/dL 120-200 HDL Cholesterol 48 mg/dL 29-83 LDL-Cholesterol 70 mg/dL 62-185 Triglycerides 102 mg/dL 16-231 Laboratory test finding 02/13/2012 N2N/CCD Import Culture Throat See Note 48 Laboratory test finding 05/03/2011 N2N/CCD Import Cytology Pap See Note 49 Laboratory test finding 04/26/2011 N2N/CCD Import Anion Gap 12 mEq/L 8- 16 BUN 13 mg/dL 5-23 BUN/Creat 16.2 ratio Bas% 0.3 % 0.0-1.1 Baso # 0.02 K/uL 0.0-0.1 Calcium 8.7 mg/dL 8.5-10.1 Carbon Dioxide 27 mEq/L 18-29 Chloride 104 mmol/L 98-107 Creatinine 0.8 mg/dL 0.5-1.4 Eo% 2.0 % 0.0-6.6 Eos # 0.16 K/uL 0.0-0.5 Glom Filtration Rate, Estimate >60 mL/min >60 Glucose 72 mg/dL Low 76-115 Hematocrit 38.3 % 36.0-46.1 Hemoglobin 12.7 gm/dL 11.6-15.8 If >60 mL/min >60 50 Lymph # 2.11 K/uL 0.8-3.4 Lymph % 26.6 % 17.0-46.1 Mean Cell Volume 88.9 fl 80.9-99.0 Mean Corpuscular HGB 29.5 pg 25.9-32.7 Mean Corpuscular HGB Conc 33.2 g/dL 30.8-34.3 Mean Platelet Volume 10.7 fL 8.9-12.4 Hitchcock # 0.60 K/uL 0.3-0.9 Hitchcock % 7.6 % 4.3-13.2 Neut# 5.05 K/uL 1.0-7.0 Neut% 63.5 % 40.4-72.8 Platelet Count 241 K/uL 155-360 Potassium 4.4 mmol/L 3.5-5.1 Red Blood Count 4.31 M/uL 3.90-5.40 Red Cell Distri Width %CV 13.3 % 11.7-14.4 Red Cell Distri Width SD 42.3 fl 3-47 SGPT/Alt 21 U/L Low 30-65 51 Sgot/Ast 14 U/L Low 16-40 52 Sodium 139 mmol/L 136-145 Thyroid Stim Hormone 3.60 uIU/mL 0.49-4.67 53 White Blood Count 7.9 K/uL 3.1-10.7 LDL Cholesterol Profile 04/26/2011 N2N/CCD Import Cholesterol 150 mg/dL 120-200 HDL Cholesterol 59 mg/dL 29-83 LDL-Cholesterol 79 mg/dL 62-185 Triglycerides 60 mg/dL 16-231 Laboratory test finding 08/09/2010 N2N/CCD Import Culture Throat See Note 54 Laboratory test finding 04/17/2010 N2N/CCD Import Cytology Pap See Note 55 Laboratory test finding 09/13/2009 N2N/CCD Import Culture Throat See Note 56 Laboratory test finding 08/28/2009 N2N/CCD Import Culture Throat See Note 57 Laboratory test finding 07/15/2008 N2N/CCD Import Anion Gap 8 mEq/L 8- 16 BUN 8 mg/dL 5-23 BUN/Creat 10.0 Bas% 0.1 % 0.0-1.1 Baso # 0.0 K/uL 0.0-0.1 Calcium 9.0 mg/dL 8.5-10.1 Carbon Dioxide 30 mEq/L 21-32 Chloride 103 mEq/L 98-107 Creatinine 0.8 mg/dL 0.5-1.4 Eo% 3.0 % 0.0-6.6 Eos # 0.3 K/uL 0.0-0.5 Glom Filtration Rate, Estimate >60 mL/min >60 Glucose 96 mg/dL 76-115 Hematocrit 42.4 % 36.0-46.1 Hemoglobin 14.1 gm/dL 11.6-15.8 If >60 mL/min >60 58 Lymph # 2.1 K/uL 0.8-3.4 Lymph % 24.0 % 17.0-46.1 Mean Cell Volume 87.8 fl 80.9-99.0 Mean Corpuscular HGB 29.2 pg 25.9-32.7 Mean Corpuscular HGB Conc 33.3 g/dL 30.8-34.3 Mean Platelet Volume 10.9 fL 8.9-12.4 Hitchcock # 0.7 K/uL 0.3-0.9 Hitchcock % 8.0 % 4.3-13.2 Neut# 5.7 K/uL 1.0-7.0 Neut% 64.9 % 40.4-72.8 Platelet Count 243 K/uL 155-360 Potassium 4.0 mEq/L 3.5-5.1 Red Blood Count 4.83 M/uL 3.90-5.40 Red Cell Distri Width %CV 13.3 % 11.7-14.4 Red Cell Distri Width SD 42 fl 3-47 Sodium 137 mEq/L 136-145 Thyroid Stim Hormone 2.30 uIU/mL 0.49-4.67 White Blood Count 8.8 K/uL 3.1-10.7 Laboratory test finding 03/24/2008 N2N/CCD Import Cytology Pap See Note 59 Laboratory test finding 09/01/2007 N2N/CCD Import Anion Gap 10 mEq/L 8- 16 60 BUN 10 mg/dL 5-23 BUN/Creat 16.6 Calcium 9.6 mg/dL 8.5-10.1 Carbon Dioxide 29 mEq/L 21-32 Chloride 108 mEq/L High 98-107 Creatinine 0.6 mg/dL 0.5-1.4 Glucose 84 mg/dL 76-115 Potassium 4.3 mEq/L 3.5-5.1 Sodium 143 mEq/L 136-145 Thyroid Stim Hormone 2.73 uIU/mL 0.49-4.67 LDL Cholesterol Profile 09/01/2007 N2N/CCD Import Cholesterol 132 mg/dL 120-200 HDL Cholesterol 46 mg/dL 32-96 LDL-Cholesterol 79 mg/dL 62-185 Triglycerides 35 mg/dL 0-210 Liver Function Tests 09/01/2007 N2N/CCD Import Albumin 4.0 g/dL 3.5-5.0 Alkaline Phosphatase 81 U/L 50-136 Bilirubin,Direct 0.2 mg/dL 0.1-0.4 Bilirubin,Indirect 0.2 mg/dL 0.0-0.9 Bilirubin,Total 0.4 mg/dL 0.2-1.2 SGPT/Alt 30 U/L 30-65 Sgot/Ast 18 U/L 16-40 Total Protein 7.1 g/dL 6.3-8.0 Laboratory test 02/25/2006 N2N/CCD Import Throat Strep <see comment> 61 finding Screen Laboratory test 09/18/2005 N2N/CCD Import Antibody Non-Reactive Nonreactive 62 finding Detection Cholesterol 159 mg/dL 120-200 Dehydroepiandrosterone (Dhea) 310 ng/dL 162-995 63 FSH 5.9 mIU/mL 64 Glucose 84 mg/dL 76-115 Luteinizing Hormone 2.5 mIU/mL 65 Sex Hormone Binding Globulin 32 nmol/L . 66 Thyroid Stim Hormone 1.93 uIU/mL 0.49-4.67 Testosterone,Free/Weakly 09/18/2005 N2N/CCD Import Testosterone,%Free/ Weakly 11.1 3.0-18.0 Bound BND % Testosterone,Free+Weakly Bound 4.8 ng/dL 0.0-9.5 Testosterone,Serum 43 ng/dL 14-76 1 today 2 Unless otherwise specified, testing performed by [facility] [address] [place] [address] 3 Unless otherwise specified, testing performed by [facility] [address] [place] [address] 4 S/CO Ratio >/=1.0 is REACTIVE. S/CO <5.0 is Low Reactive. S/CO >/= 5.0 is High Reactive. Effective Jan 24, 2017 all anti-HCV reactive samples are sent for quantitative PCR confirmation. 5 prior to office visit in feb 05 Updated reference range on new analyzer 7 Updated reference range on new analyzer 8 Concerning GFR Guidelines for Americans: Normal function or mild renal disease, if clinically at risk: >/=60 mL/min Moderately decreased: 30-59 Severely decreased: 15-29 Renal failure: <15 9 Concerning GFR Guidelines: Normal function or mild renal disease, if clinically at risk: >/=60 mL/min Moderately decreased: 30-59 Severely decreased: 15-29 Renal failure: <15 Glomerular Filtration Rate (GFR) is estimated based on the MDRD equation, which assumes a steady state for creatinine as recommended by the National Kidney Disease Education Program in conjunction with the National Institutes of Health and the National Kidney Foundation. Clinical conditions in which it may be necessary to measure GFR by using clearance methods include extremes of age and body size, severe malnutrition or obesity, diseases of skeletal muscle, paraplegia or quadriplegia, vegetarian diet, rapidly changing kidney function, and calculation of the dose of potentially toxic drugs that are excreted by the kidneys. 10 Updated Reference Range 11 CORTISOL REFERENCE RANGE: 7-9AM 4.3 - 22.4 MCG/DL 4-6PM 3.1 - 16.7 MCG/DL LATE AFTERNOON LEVELS FALL TO APPROX. 1/2 AM VALUE. RESULTS REVIEWED Unless otherwise specified, [place] [address] 12 Updated reference range on new analyzer 13 Updated reference range on new analyzer 14 Concerning GFR Guidelines: Normal function or mild renal disease, if clinically at risk: >/=60 mL/min Moderately decreased: 30-59 Severely decreased: 15-29 Renal failure: <15 Glomerular Filtration Rate (GFR) is estimated based on the MDRD equation, which assumes a steady state for creatinine as recommended by the National Kidney Disease Education Program in conjunction with the National Institutes of Health and the National Kidney Foundation. Clinical conditions in which it may be necessary to measure GFR by using clearance methods include extremes of age and body size, severe malnutrition or obesity, diseases of skeletal muscle, paraplegia or quadriplegia, vegetarian diet, rapidly changing kidney function, and calculation of the dose of potentially toxic drugs that are excreted by the kidneys. 15 Concerning GFR Guidelines for Americans: Normal function or mild renal disease, if clinically at risk: >/=60 mL/min Moderately decreased: 30-59 Severely decreased: 15-29 Renal failure: <15 16 Updated Reference Range 17 Unless otherwise specified, testing [place] [address] 18 Per NCEP ATP III Guidelines: Results lower than 40 mg/dL are suggestive of increased risk for coronary artery disease. Results > or=to 60 mg/dL are considered a negative risk factor. 19 Per NCEP ATP III Guidelines: Normal Population <130 Patients with medical conditions: CHD/DM Optimal: <100 Borderline high: 130-159 High: 160-189 Very high: >189 20 Updated reference range on new analyzer 21 Updated reference range on new analyzer 22 Concerning GFR Guidelines for Americans: Normal function or mild renal disease, if clinically at risk: >/=60 mL/min Moderately decreased: 30-59 Severely decreased: 15-29 Renal failure: <15 23 Concerning GFR Guidelines: Normal function or mild renal disease, if clinically at risk: >/=60 mL/min Moderately decreased: 30-59 Severely decreased: 15-29 Renal failure: <15 Glomerular Filtration Rate (GFR) is estimated based on the MDRD equation, which assumes a steady state for creatinine as recommended by the National Kidney Disease Education Program in conjunction with the National Institutes of Health and the National Kidney Foundation. Clinical conditions in which it may be necessary to measure GFR by using clearance methods include extremes of age and body size, severe malnutrition or obesity, diseases of skeletal muscle, paraplegia or quadriplegia, vegetarian diet, rapidly changing kidney function, and calculation of the dose of potentially toxic drugs that are excreted by the kidneys. 24 Updated reference range on new analyzer 25 Laboratory [place] [address] Surgical Pathology Report Specimen(s) Received A: Skin lesion, right shoulder Clinical Diagnosis and History Skin lesion right shoulder, irregularly shaped macule. ICD 10 D48.5 Gross Description Specimen received in formalin labeled with the patient's name is a 0.9 x 0.7 x 0.1 cm irregular, granular, hernández-brown and mottled skin shave fragment. The specimen is inked, trisected and totally submitted for microscopic examination. (1 block) jmd rff/sgb Diagnosis SKIN, RIGHT SHOULDER, SHAVE SUPERFICIAL FRAGMENT OF A COMPOUND NEVUS, TRANSECTED AT THE BASE AND PERIPHERAL MARGINS. Technical component processed at [facility], Histopathology, [address] [place] [address], [id number]. Diagnosis and reporting performed at [facility], [address] [place] [address]. As applicable, positive and negative controls for all immunohistochemical and/or special stains were reviewed and considered appropriate. Reported: 01/29/2016 18:37 Electronically Signed Out By Micaela Correa D.O. dorita This report may include one or more immunohistochemical or in-situ hybridization results. Testing has been developed and the performance characteristics were determined by [employer] as required by CLIA '88 regulations. The tests may not have been approved for a given specific use by the US Food and Drug Administration, but the FDA has determined that such approval is not necessary for clinical use. ICD9 Codes D23.9 Unless otherwise specified, testing performed by [facility] [address] [place] [address] 26 Reference range: 0.00 to 0.79 Unit: AU INTERPRETIVE INFORMATION: Measles (Rubeola) Antibody, IgM 0.79 AU or less .......... Negative - No significant level of IgM antibody to measles (Rubeola) virus detected. 0.80 - 1.20 AU ........... Equivocal - Repeat testing in 10-14 days may be helpful. 1.21 AU or greater ....... Positive - IgM antibody to measles (Rubeola) virus detected. Suggestive of a current or recent infection or immunization. However, low levels of IgM antibodies may occasionally persist for more than 12 months post-infection or immunization. Performed by [facility], [address] [place] [id number] [email or web address], Estiven Wolfe MD, Lab. Director Unless otherwise specified, testing performed by [facility] [address] [place] [address] 27 IgG antibody to Mumps detected. This may indicate that the patient was exposed to Mumps through infection or vaccination. Unless otherwise specified, testing performed by [facility] [address] [place] [address] 28 IgG antibody to Rubella detected. IgG antibody levels are at a level considered to indicate positive immunity. Unless otherwise specified, testing performed by [facility] [address] [place] [address] 29 today 30 Concerning GFR Guidelines for Americans: Normal function or mild renal disease, if clinically at risk: >/=60 mL/min Moderately decreased: 30-59 Severely decreased: 15-29 Renal failure: <15 31 Concerning GFR Guidelines: Normal function or mild renal disease, if clinically at risk: >/=60 mL/min Moderately decreased: 30-59 Severely decreased: 15-29 Renal failure: <15 Glomerular Filtration Rate (GFR) is estimated based on the MDRD equation, which assumes a steady state for creatinine as recommended by the National Kidney Disease Education Program in conjunction with the National Institutes of Health and the National Kidney Foundation. Clinical conditions in which it may be necessary to measure GFR by using clearance methods include extremes of age and body size, severe malnutrition or obesity, diseases of skeletal muscle, paraplegia or quadriplegia, vegetarian diet, rapidly changing kidney function, and calculation of the dose of potentially toxic drugs that are excreted by the kidneys. 32 Education Everytime [facility]. [address] [place] [address] GYNECOLOGIC CYTOLOGY REPORT Accession Number: [id number] Source of Specimen(s): A: Thin Prep Cervical / Endocervical Pap Smear - One Vial Clinical Diagnosis and History: Date of Last Menstrual Period: 10/15/14 Other Clinical Conditions: Last Pap Smear: 2011 normal HPV ASSAY REQUESTED Specimen Adequacy Satisfactory for evaluation Absence of endocervical/transformation zone component General Categorization Negative for intraepithelial lesion or malignancy Interpretation NEGATIVE FOR INTRAEPITHELIAL LESION OR MALIGNANCY Recommendations HPV testing will be performed and a separate report will be issued. Reported: 11/07/2014 Electronically Signed Out By Genevieve LAMA(ASCP) [facility] dss Unless otherwise specified, testing performed by [facility] [address] [address] [address] [address] Amplified Molecular High Risk HPV Test Accession Number [id number] Specimen(s) Received A: High Risk HPV Thin Prep Cervical / Endocervical Pap Smear - One Vial Other Case Numbers: [id number] Diagnosis RISK GROUPS RESULTS High Risk NEGATIVE Tested for HPV Types (16, 18, 31, 33, 35, 39, 45, 51, 52, 56, 58, 59, 66, 68) Reported: 11/07/2014 16:16 Electronically Signed Out By Emma Carbone [place] lic 34 Negative: 0.00 - 0.24 Borderline: 0.25 - 0.40 Positive: > 0.40 35 Negative: 0 - 25 Borderline: 26 - 30 Positive: >30 Results for this test are for research purposes only by the assay's blood bank laboratory technician. The performance characteristics of this product have not been established. Results should not be used as a diagnostic procedure without confirmation of the diagnosis by another medically established diagnostic product or procedure. 36 Negative: <21 Equivocal: 21 - 25 Positive: >25 The assay is linear between values of 12 and 64. Those <12 and >64 are reported as such. No single value for ACR-modulating antibody should be used as a sole basis for diagnosis or response to therapy. Performed at: - [address] [id number] [place] [employer]: Maged Mcgrath MD, Phone: [phone] 37 Note: Persistent reduction for 3 months or more in an eGFR <60 mL/min/1.73 m2 defines CKD. Patients with eGFR values >/=60 mL/min/1.73 m2 may also have CKD if evidence of persistent proteinuria is present. The original MDRD equation for estimated GFR is not valid for patients less than 18 years of age. Additional information may be found at www.[email or web address]. 38 RESULTS MAY BE AFFECTED DUE TO HEMOLYSIS 39 Vitamin D deficiency has been defined by the [place] of [employer] and an Endocrine Society practice guideline as a level of serum 25-OH vitamin D less than 20 ng/mL (1,2). The Endocrine Society went on to further define vitamin D insufficiency as a level between 21 and 29 ng/mL (2). 1. IOM ([place] of [employer]). 2010. Dietary reference intakes for calcium and D. [place]: The National Academies Press. 2. Zeke MF, Vandana NC, Leobardo-Loyd FELTON, et al. Evaluation, treatment, and prevention of vitamin D deficiency: an Endocrine Society clinical practice guideline. JCEM. 2010; 96(7):1911-30. Performed at: - [facility] [address] [id number] [place]: Carolina Reed MD, Phone: [phone] 40 NEGATIVE FOR CHLAMYDIA TRACHOMATIS BY DNA HYBRIDIZATION ASSAY. THIS TEST IS APPROVED FOR OCULAR AND UROGENITAL SITES ONLY. 41 NEGATIVE FOR NEISSERIA GONORRHOEAE BY DNA HYBRIDIZATION ASSAY. THIS METHOD IS APPROVED FOR UROGENITAL SITES ONLY. 42 No reportable results 43 Note: Persistent reduction for 3 months or more in an eGFR <60 mL/min/1.73 m2 defines CKD. Patients with eGFR values >/=60 mL/min/1.73 m2 may also have CKD if evidence of persistent proteinuria is present. The original MDRD equation for estimated GFR is not valid for patients less than 18 years of age. Additional information may be found at www.[email or web address]. 44 PENDING; TEST PERFORMED ON MONDAYS AND THURSDAYS FASTING 45 FASTING 46 FASTING 47 FASTING 48 NORMAL THROAT HECTOR 49 Cytology Laboratory [address] [facility], [address] [place] [address] CYTOLOGY REPORT Name: Galdino Omalley : 1980 (Age: 30) Sex: F Location: [facility] Soc. Sec. #: [id number] Date Collected: 05/03/2011 Billing #: [id number] Date Received: 05/03/2011 Med. Rec. #: [id number] Requisition # [id number] Physician(s): ANA PAULA TAFOYA MD Source of Specimen: ENDOCERVICAL/ECTOCERVICAL THIN PREP Clinical Information: Date of Last Menstrual Period: 04/10/11 Menstrual History: Regular Specimen Adequacy: SATISFACTORY FOR EVALUATION. NO ENDOCERVICAL/ TRANSFORMATION ZONE. General Categorization: NEGATIVE FOR INTRAEPITHELIAL LESION OR MALIGNANCY. aminah Electronic Signature Rene Wilson MD Reported: 05/08/2011 Also seen by: DAINA Boyd (ASCP) [facility] ICD-9 Code(s) V72.31 50 Note: Persistent reduction for 3 months or more in an eGFR <60 mL/min/1.73 m2 defines CKD. Patients with eGFR values >/=60 mL/min/1.73 m2 may also have CKD if evidence of persistent proteinuria is present. The original MDRD equation for estimated GFR is not valid for patients less than 18 years of age. Additional information may be found at [email or web address]. 51 6 mos 52 6 mos 53 6 mos 54 NORMAL THROAT HECTOR 55 Cytology Laboratory [address] [facility], [address] [place] [address] CYTOLOGY REPORT Name: Galdino Omalley : 1980 (Age: 29) Sex: F Location: [facility] Soc. Sec. #: [id number] Date Collected: 04/16/2010 Billing #: [id number] Date Received: 04/17/2010 Med. Rec. #: [id number] Requisition # [id number] Physician(s): ANA PAULA TAFYOA MD Source of Specimen: ENDOCERVICAL/ECTOCERVICAL THIN PREP Clinical Information: Date of Last Menstrual Period: 04/08/10 Menstrual History: Regular Specimen Adequacy: SATISFACTORY FOR EVALUATION. NO ENDOCERVICAL/ TRANSFORMATION ZONE. General Categorization: NEGATIVE FOR INTRAEPITHELIAL LESION OR MALIGNANCY. lgs Electronic Signature DAINA Amaya (ASCP) Reported: 04/23/2010 Also seen by:DAINA Amaya (ASCP) [facility] ICD-9 Code(s) V72.31 56 NORMAL THROAT HECTOR 57 NORMAL THROAT HECTOR 58 Note: Persistent reduction for 3 months or more in an eGFR <60 mL/min/1.73 m2 defines CKD. Patients with eGFR values >/=60 mL/min/1.73 m2 may also have CKD if evidence of persistent proteinuria is present. The original MDRD equation for estimated GFR is not valid for patients less than 18 years of age. Additional information may be found at [email or web address]. 59 Cytology [id number] [facility], [address] [place] [address] CYTOLOGY REPORT Name: Galdino Omalley : 1980 (Age: 27) Sex: F Location: [facility] Soc. Sec. #: [id number] Date Collected: 03/24/2008 Billing #: [id number] Date Received: 03/24/2008 Requisition # [id number] Physician(s): ANA PAULA TAFOYA MD Source of Specimen: ENDOCERVICAL/ECTOCERVICAL THIN PREP Clinical Information: Date of Last Menstrual Period: 03/07/08 Menstrual History:Regular Dysplasia/Cancer History:Abnormal Pap smear(s) Specimen Adequacy: SATISFACTORY FOR EVALUATION. ADEQUATE ENDOCERVICAL/TRANSFORMATION ZONE. General Categorization: NEGATIVE FOR INTRAEPITHELIAL LESION OR MALIGNANCY. adela Electronic Signature Kimber Tolentino CT (ASCP) Reported: 03/29/2008 Also seen by :DAINA Swanson ( ASCP) [facility] ICD-9 Code(s) V72.31 60 Specimen: [id number] - TEST: TSH FASTING TEST: TSH Specimen: [id number]: [id number] - TESTS: LFT, C7, LDLP FASTING TEST: LFT QUERY: LIVER=TBILI,DBILI,IBILI,SGOT,SGPT,ALK PHOS,ALBUMIN TEST: C7 QUERY: IS THE PATIENT FASTING? Y QUERY: CARD 1=GLU, BUN, CRE, NA, K, CL, CO2, CALCIUM + GAP TEST: LDLP QUERY: IS THE PATIENT FASTING? Y QUERY: FASTING PROFILE INCLUDES CHOL, TRIG , HDL, + LDL Specimen: [id number] - TESTS: LFT, C7, LDLP FASTING TEST: LFT QUERY: LIVER=TBILI,DBILI,IBILI,SGOT,SGPT,ALK PHOS,ALBUMIN TEST: C7 QUERY: IS THE PATIENT FASTING? Y QUERY: CARD 1=GLU, BUN, CRE, NA, K, CL, CO2, CALCIUM + GAP TEST: LDLP QUERY: IS THE PATIENT FASTING? Y QUERY: FASTING PROFILE INCLUDES CHOL, TRIG, HDL, + LDL Specimen: [id number] - TEST: TSH FASTING TEST: TSH 61 Organism 1 ! BETA HEMOLYTIC STREP NON A QUANTITY ! MANY 62 NOTE: A NON-REACTIVE RESULT INDICATES THAT HIV-1 AND HIV-2 ANTIBODIES HAVE NOT BEEN FOUND IN THIS PATIENT SPECIMEN. A NON-REACTIVE RESULT, HOWEVER, DOES NOT PRECLUDE PREVIOUS EXPOSURE OF INFECTION WITH HIV. * [place] STATE LAW PROHIBITS THE REDISCLOSURE OF THIS RESULT * * TO ANY UNAUTHORIZED GREEN PARTY. * 63 Age Male Female 20 - 29 yrs. 208 - 771 162 - 995 30 - 39 yrs. 146 - 850 112 - 722 40 - 49 yrs. 107 - 745 110 - 554 50 - 59 yrs. 131 - 538 69 - 414 60 - 69 yrs. 82 - 338 60 - 370 > 70 yrs. 69 - 252 63 - 260 64 NORMALLY MENSTRUATING FEMALES: Follicular Phase:...............4-13 mIU/mL Mid-Cycle Peak:.................5-22 mIU/mL Luteal Phase:...................2 -13 mIU/mL Postmenopausal Female:........20-138 mIU/mL 63 NORMALLY MENSTRUATING FEMALES: Follicular Phase.............1-18 mIU/mL Mid -Cycle Peak.............24-105 mIU/mL Luteal Phase...............0.4-20 mIU/mL Postmenopausal .............15-62 mIU/mL 64 Female (Non-Preg) 18 - 114 Procedures Date Code Description Status 04/04/2018 85739 Measure Blood Oxygen Level Single Determination Completed 02/11/2018 59712 Brief Emotional/Behav Assessment W/ Scoring Doc Per Completed Standard Inst 02/11/2018 83769 Electrocardiogram Complete Completed 02/25/2017 40796 X-Ray Spine Lumbosacral Ap & Lateral Completed 02/07/2017 95730 Measure Blood Oxygen Level Single Determination Completed 01/25/2016 84515 Shave Skin Lesion .6-1CM Trunk/Arm/Leg Completed Encounters Type Date Location Provider Dx Diagnosis Office Visit 02/11/2018 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 (general) (routine) w/o abn findings Z13.89 Encounter for screening for other disorder F32.0 Major depressive disorder, single episode, mild E55.9 Vitamin D deficiency, unspecified R03.0 Elevated blood-pressure reading, w/o diagnosis of htn J30.1 Allergic rhinitis due to pollen G43.109 Migraine with aura, not intractable, w/o status migrainosus J45.30 Mild persistent asthma, uncomplicated R12 Heartburn E16.2 Hypoglycemia, unspecified M47.26 Other spondylosis with radiculopathy, lumbar region R07.9 Chest pain, unspecified Z11.3 Encntr screen for infections w sexl mode of transmiss R94.31 Abnormal electrocardiogram [ECG] [EKG] R06.02 Shortness of breath E66.9 Obesity, unspecified Z68.43 Body mass index (BMI) 50-59.9 , adult Office Visit 11/06/2017 2:30p [facility] Ana Paula Tafoya MD R60.9 Edema, unspecified F32.0 Major depressive disorder, single episode, mild M47.817 Spondyls w/o myelopathy or radiculopathy, lumbosacr region Z68.43 Body mass index (BMI) 50-59.9 , adult Office Visit 09/03/2017 10:30a [facility] Ana Paula Tafoya MD M47.817 Spondyls w/ o myelopathy or radiculopathy, lumbosacr region R12 Heartburn F32.0 Major depressive disorder, single episode, mild E16.2 Hypoglycemia, unspecified E66.9 Obesity, unspecified Z68.43 Body mass index (BMI) 50-59.9 , adult Office Visit 07/31/2017 9:15a [facility] Ana Paula Tafoya MD F32.0 Major depressive disorder, single episode, mild E55.9 Vitamin D deficiency, unspecified R03.0 Elevated blood-pressure reading, w/o diagnosis of htn J30.1 Allergic rhinitis due to pollen G43.109 Migraine with aura, not intractable, w/o status migrainosus J45.30 Mild persistent asthma, uncomplicated M47.26 Other spondylosis with radiculopathy, lumbar region G47.9 Sleep disorder, unspecified Office Visit 02/25/2017 9:30a 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 Ansley Concepcion MD J01.90 Acute sinusitis, unspecified J45.30 Mild persistent asthma, uncomplicated Office Visit 01/31/2017 1:30p 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 Demetrio Graves DO G43.109 Migraine with aura, not intractable, w/o status migrainosus J01.90 Acute sinusitis, unspecified Office Visit 12/21/2015 4:00p 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 Ana Paula Tafoya MD J01.90 Acute sinusitis, unspecified Office Visit 06/07/2015 10:00a [facility] Ana Paula Tafoya MD F32.0 Major depressive disorder, single episode, mild E55.9 Vitamin D deficiency, unspecified R03.0 Elevated blood-pressure reading, w/o diagnosis of htn J30.1 Allergic rhinitis due to pollen E28.2 Polycystic ovarian syndrome J45.909 Unspecified asthma, uncomplicated G43.109 Migraine with aura, not intractable, w/o status migrainosus Office Visit 11/03/2014 8:15a 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 Freddie Davey, 465.9 URI Upper Respiratory MD Infections Acute Unspec Sites 461.9 Sinusitis Acute Unspec 382.00 Otitis Media Suppurative Acute Plan of Treatment Future Appointment(s):08/11/2018 9:00 am - Ana Paula Tafoya MD at [facility]04/04/2018 - Katina Davey, NPJ01.90 Acute sinusitis, unspecifiedNew Medication: Amoxicillin/Clavulanate Potassium 875-125 mg - 1 by mouth every 12 hours for 10 daysComments:Plenty of rest and fluids.Recommend Mucinex 600mg every 12 hours until symptoms resolve.Tylenol 1000mg every 4-6 hours or ibuprofen 600-800mg every 6-8 hours with food for fever or FELTON.Humidifier may behelpful. Take Augmentin with food.Recommend use of yogurt or probiotic daily while on antibiotic.Viral infections can last 10-14 with cough often lingering for up to 6 weeks.Follow up:PRN for no improvement in 3-4 days
[2018-04-29] MEDS ORDERED: NS 0.9% 1000 ML* 1,000 ML IV ONE (12:25)
[2018-04-29] MEDS ORDERED: Metoclopramide IV* 5 MG/ML 2 ML VIAL IV ONE (12:25)
[2018-04-29] MEDS ORDERED: methylPREDNISolone 125 MG* 2 ML VIAL IV ONE (12:25)
--- NOTE | 2018-04-29 12:25 | ED ---
Headache - HPI Summary HPI Summary: This pt is a 37 y/[facility]5 [facility]. Pt reports her headache began 5 days ago while she was driving. She has hx of migraine headache but notes this is different than usual as it is lasting longer. Pt reports photophobia, blurry vision, sinus congestion. She states visual disturbance lasting longer than usual. Pt notes her pain level has changed and currently rates it 6 or 7 out of 10 in severity, located on the left side of her head. Denies fever, neck stiffness, sore throat, ear ache, chest pain, SOB. Pt has not taken any medications for her pain. She reports she used to take Fioricet but the prescribed dose was not helping with pain and ended up taking more than prescribed. Pt has recently been prescribed Imitrex, but has not taken any yet. She does not have a neurologist. Pt states she has never had a head cat scan in the past. PMHx: depression (on Prozac), allergies, asthma. Allergic to Cefaclor and minocycline. - History Of Current Complaint Chief Complaint: EDHeadache Stated Complaint: HEADACHE NAUSEA Time Seen by Provider: 04/29/18 12:15 Hx Obtained From: Patient Hx Last Menstrual Period: 2 weeks ago Onset/Duration: Started days ago - 5, Still Present Currently Pain Is: Current Pain Scale(0-10)= - 6 or 7, Moderate Timing: Days Character: Migraine Location of Headache: Temporal - left Aggravating Factor: Bright Lights Allevating Factors: Nothing Associated Signs And Symptoms: Nausea, Vomiting, Visual Changes - blurry vision , Other (Noted In Comments) - POS: photophobia, sinus congestion. NEG: fever, neck stiffness, sore throat, ear ache, chest pain, SOB - Allergies/Home Medications Allergies/Adverse Reactions: Allergies Allergy/AdvReac Type Severity Reaction Status Date / Time [facility]lor [facility] Allergy Hives Verified 04/29/18 11:57 minocycline Allergy Hives Verified 04/29/18 11:57 PMH/Surg Hx/FS Hx/Imm Hx Endocrine/Hematology History: Denies: Hx Diabetes Respiratory History: Reports: Hx Asthma Neurological History: Reports: Hx Migraine Infectious Disease History: No Infectious Disease History: Reports: Traveled Outside the [place] in Last 30 Days Denies: Hx Clostridium Difficile, Hx Hepatitis, Hx Human Immunodeficiency Virus (HIV), Hx of Known/Suspected MRSA, Hx Shingles, Hx Tuberculosis, Hx Known/ Suspected VRE, Hx Known/Suspected VRSA, History Other Infectious Disease - Family History Known Family History: Positive: Hypertension, Respiratory Disease - asthma Negative: Cardiac Disease, Diabetes - Social History Alcohol Use: Occasionally Substance Use Type: Reports: None Smoking Status (MU): Never Smoked Tobacco Have You Smoked in the Last Year: No Review of Systems Negative: Fever, Chills Positive: Photophobia, Blurred Vision ENT: Other - POS: sinus congestion Negative: Sore Throat, Ear Ache Negative: Chest Pain Negative: Shortness Of Breath Positive: Vomiting, Nausea Negative: Other - neck stiffness Positive: Headache All Other Systems Reviewed And Are Negative: Yes Physical Exam - Summary Physical Exam Summary: Appearance: Well appearing, no pain distress Skin: warm, dry, reflects adequate perfusion Head/face: normal Eyes: EOMI, DARRIAN ENT: normal Neck: supple, nontender Respiratory: CTA, breath sounds present Cardiovascular: RRR, pulses symmetrical Abdomen: nontender, soft Musculoskeletal: normal, strength/ROM intact Neuro: normal, sensory motor intact, A&Ox3 Triage Information Reviewed: Yes Vital Signs On Initial Exam: Initial Vitals Temp Pulse Resp BP Pulse Ox 98.6 F 95 16 132/108 100 04/29/18 11:54 04/29/18 11:54 04/29/18 11:54 04/29/18 11:54 04/29/18 11:54 Vital Signs Reviewed: Yes - [place] Coma Scale Best Eye Response: 4 - Spontaneous Best Motor Response: 6 - Obeys Commands Best Verbal Response: 5 - Oriented Coma Scale Total: 15 Diagnostics - Vital Signs Vital Signs Temp Pulse Resp BP Pulse Ox 04/29/18 11:54 98.6 F 95 16 132/108 100 - Laboratory Result Diagrams: 04/29/18 12:59 04/29/18 14:30 Lab Statement: Any lab studies that have been ordered have been reviewed, and results considered in the medical decision making process. - CT Brain CT CT Interpretation Completed By: Radiologist Summary of CT Findings: IMPRESSION: No acute intracranial pathology. Dr. Davila has reviewed this report. Re-Evaluation - Re-Evaluation First Eval Re-Evaluation Time: 14:42 Change: Improved Comment: Pt reports feeling better. She will be discharged home with follow up from neurology. Headache Course/Dx - Course Assessment/Plan: Pt is a 37 y/o female who presents with migraine headache x5 days. Pt reports her headache began 5 days ago while she was driving. She has hx of migraine headache but notes this is different than usual as it is lasting longer. Pt reports photophobia, blurry vision, sinus congestion. She states visual disturbance lasting longer than usual. Pt notes her pain level has changed and currently rates it 6 or 7 out of 10 in severity, located on the left side of her head. Denies fever, neck stiffness, sore throat, ear ache, chest pain, SOB. Pt has not taken any medications for her pain. Blood work and brain CT obtained. Brain CT shows no acute intracranial pathology. In the ED course the pt was given IV fluids, Benadryl, Reglan, and solu-Medrol. Pt reports feeling better after these medications. Pt will be discharged home with follow up from neurology and PCP. She was given a prescription for Medrol. Pt was given instructions to return to the ED for any worsening or new symptoms. - Diagnoses Differential Diagnosis/HQI/PQRI: Migraine, Sinus Headache, Tension Headache Provider Diagnoses: Migraine headache Discharge - Sign-Out/Discharge Documenting (check all that apply): Patient Departure - Discharge home - Discharge Plan Condition: Stable Disposition: HOME Prescriptions: methylPREDNISolone [Medrol] 4 mg PO ONCE #1 tab.ds.pk Patient Education Materials: Migraine Headache (ED) Referrals: Ana Paula Tafoya MD [Primary Care Provider] - Halle Machado MD [Medical Doctor] - Additional Instructions: Follow call Dr. Machado's office, neurologist, to make a follow up appointment. Please follow up with your primary care provider in 3 days. RETURN TO THE ED FOR ANY WORSENING OR NEW SYMPTOMS. - Billing Disposition and Condition Condition: STABLE Disposition: Home - Attestation Statements Document Initiated by Scribe: Yes Documenting Scribe: Marina Santana Provider For Whom Celia is Documenting (Include Credential): Shai Davila MD Scribe Attestation: Marina Edwards, scribed for Shai Davila MD on 04/29/18 at 1617. Scribe Documentation Reviewed: Yes Provider Attestation: The documentation as recorded by the Marina murray accurately reflects the service I personally performed and the decisions made by me, Shai Davila MD Status of Scribe Document: Viewed
[2018-04-29] MEDS ORDERED: diPHENhydraMINE PO* 50 MG PO ONE (12:27)
[2018-04-29 13:09] LABS: ABS Basophils 0 10^3/ul (0-0.2); ABS Eosinophils 0.1 10^3/ul (0-0.6); ABS Lymphocytes 1.8 10^3/ul (1.0-4.8); ABS Monocytes 0.6 10^3/ul (0-0.8); ABS Nucleated RBC 0 10^3/ul; Eosinophil % 1.5 %; Hematocrit 38 % (35-47); Hemoglobin 12.6 g/dl (12.0-16.0); Lymphocyte % 23.8 %; Mean Corpuscular HGB Conc 33 g/dl (31-36); Mean Corpuscular Hemoglobin 29 pg (27-31); Mean Corpuscular Volume 87 fL (80-97); Mean Platelet Volume 8.3 fL (7.4-10.4); Nucleated Red Blood Cells % 0; Platelet Count 279 10^3/ul (150-450); Red Blood Count 4.37 10^6/ul (4.00-5.40); Red Cell Distribution Width 14 % (10.5-15); White Blood Count 7.5 10^3/ul (3.5-10.8)
[2018-04-29 13:20] LABS: INR 0.9 (0.77-1.02)
[2018-04-29 13:35] LABS: EGFR Non-African American 115.7 (>60)
[2018-04-29 14:42] VITALS: BP 102/68
== END 2018-04-29 15:14 | disposition home or self-care (01) ==
LOC: ED 11:40
DX: G43.909 Migraine, unspecified, not intractable, without status migrainosus (principal); R11.2 Nausea with vomiting, unspecified; H53.8 Other visual disturbances; H53.149 Visual discomfort, unspecified; R09.81 Nasal congestion; R51 Headache; Z88.1 Allergy status to other antibiotic agents
CPT/HCPCS: 36415; 70450; 80053; 84702; 85025; 85610; 85730; 96361; 96374; 96375; 99282; A9270-GY; J2765; J2930

== ENCOUNTER 2018-05-22 11:44 | Emergency (ER) | payer BC ==
[2018-05-22 11:54] VITALS: BP 144/82
--- NOTE | 2018-05-22 12:06 | UC ---
Throat Pain/Nasal Dwain HPI - HPI Summary HPI Summary: Patient with a URI/head cold for the last 5 days. Patient states she was feeling better until 48 hours ago with similar chest. Patient now with coarse cough with green sputum. Patient states she feels weak wheezy. Patient's been using her rescue inhaler with no improvement. Patient states she has some sinus congestion, has postnasal drip, and ear fullness. Patient has not taken any [id number] medication. Patient states she got sick from her daughter from school Last prednisone was approximately 3 weeks ago for a migraine. cough productive green sputum. tactile fever. Patient has not needed treatment for her asthma more than a year. Patient states she took some Time off work, went back yesterday, Tylenol for but one pack yesterday and left early today. Patient's every to be. Patient's medications reviewed this visit. - History of Current Complaint Chief Complaint: UCRespiratory Stated Complaint: URI Time Seen by Provider: 05/22/18 11:56 Hx Obtained From: Patient Hx Last Menstrual Period: 05/13/18 ?: No Onset/Duration: Gradual Onset Severity: Mild Pain Intensity: 2 Pain Scale Used: 0-10 Numeric - Allergies/Home Medications Allergies/Adverse Reactions: Allergies Allergy/AdvReac Type Severity Reaction Status Date / Time cefaclor [From [facility]] Allergy Hives Verified 05/22/18 11:55 minocycline Allergy Hives Verified 05/22/18 11:55 PMH/Surg Hx/FS Hx/Imm Hx Previously Healthy: Yes - Surgical History Surgical History: None - Family History Known Family History: Positive: Hypertension, Respiratory Disease - asthma Negative: Cardiac Disease, Diabetes - Social History Occupation: Employed Full-time - [place] Lives: With Family Alcohol Use: Occasionally Substance Use Type: None Smoking Status (MU): Never Smoked Tobacco Have You Smoked in the Last Year: No - Immunization History Most Recent Influenza Vaccination: MAR 2017 Review of Systems All Other Systems Reviewed And Are Negative: Yes Constitutional: Positive: Fever - tactile, Fatigue Skin: Positive: Negative Respiratory: Positive: Shortness Of Breath, Cough, Other Physical Exam - Summary Physical Exam Summary: Vital Signs Reviewed: Yes A+Ox3, coarse, deep cough Eyes: Conjunctiva Clear, DARRIAN. EOM intact and full ENT: Hearing grossly normal TM x 2 clear, turbinates inflammed, + PND mmoist, uvula midline, no exudate, no erythema Neck: Positive: Supple Respiratory: Positive: No respiratory distress, No accessory muscle use + expiratory wheeze, coarse cough + BS throughout Cardiovascular: RRR nl s1, s2 no m/r CBT <2 sec abd soft + BS nt/nd no guarding, no distension Musculoskeletal Exam: BERNSTEIN x 4 without difficulty Strength Intact, ROM Intact Neurological: Positive: Alert, + sensation throughout Psychological: Positive: Normal Response To Family Skin: Positive: no rash, no ecchymosis Triage Information Reviewed: Yes Vital Signs: Initial Vital Signs Temp 96.8 F 05/22/18 11:52 Pulse 99 05/22/18 11:52 Resp 20 05/22/18 11:52 BP 144/82 05/22/18 11:52 Pulse Ox 98 05/22/18 11:52 Re-Evaluation - Re-Evaluation First Eval Re-Evaluation Time: 12:55 Change: Improved Comment: Pt markedly improved after neb. less cough. no wheeze. states feels better. Will Rx pred, ABX, mdi. Will Rx aero chamber. pt has nebulizer, albuterol at home - will give tubing Throat Pain/Nasal Course/Dx - Course Course Of Treatment: Pt presents woth 5 days URI not settled in chest. Pt with coarse cough, now settled in chest. Pt with green prductive sputum. Pn exam pt with coase cough and exp wheeze. VSS. Will give duoneb and reassess. Pt's blood pressure mildly elevated - recommend recheck with pcp - Differential Dx/Diagnosis Provider Diagnosis: Acute bronchitis Discharge - Sign-Out/Discharge Documenting (check all that apply): Patient Departure All imaging exams completed and their final reports reviewed: No Studies - Discharge Plan Condition: Stable Disposition: HOME Prescriptions: Albuterol HFA INHALER* [Ventolin HFA Inhaler*] 2 puff INH Q4H PRN #1 mdi PRN Reason: wheeze Inhaler, Assist Devices [Aerochamber Mv] 1 each PO Q4HR #1 spacer predniSONE TAB* [Deltasone TAB*] 50 mg PO DAILY #5 tab Patient Education Materials: Acute Bronchitis (ED) Referrals: Ana Paula Tafoya MD [Primary Care Provider] - Additional Instructions: -Take antibiotics exactly as prescribed until gone -Use your albuterol or nebulizer every 4 hours for the next 2 days - then as needed -Stay well hydrated - avoid excess caffeine and all alcohol - eat regular, healthy meals - - humidify the air in the room where you sleep - boil water, run a hot steam shower, vaporizer, cups of water by heat register - okay to take over the counter decongestant and cough medication - take prednisone as prescribed -- These infections are spread by secretions - do NOT share eating or drinking utensils - clean items you share with other people such as cell phones, computer mouse, TV remote, computer tablets,etc.. Once you have been antibiotics for 2 days, change your toothbrush and your pillowcase. -Contact your doctor to arrange a follow-up appointment this week. Call your doctor, return here or go to the emergency department with any questions or concerns - Billing Disposition and Condition Condition: STABLE Disposition: Home
[2018-05-22] MEDS ORDERED: Albuterol/Ipratropium NEB.SOL* Albuterol 2.5 MG/Ipratropium 0.5 MG 3 ML INH ONE (12:18)
== END 2018-05-22 13:00 | disposition home or self-care (01) ==
LOC: UCEAST 11:44
DX: J20.9 Acute bronchitis, unspecified (principal); Z88.1 Allergy status to other antibiotic agents
CPT/HCPCS: 99212; A9270-GY; G0463

== ENCOUNTER 2018-08-31 23:08 | Emergency (ER) | payer BC, MEDICAID ==
--- OUTSIDE RECORDS SUMMARY | 2018-08-31 23:25 | XMS REPORT | Continuity of Care Document ---
:1980 External Reference #:[id number] Author Name Ana Paula Tafoya MD Address [address] [place] [address] Care Team Providers Name Role Phone Ana Paula Tafoya MD Care Team Information [employer] Unavailable Payers Date Identification Numbers Payment Provider Subscriber Policy Number: [id number] [facility] Plan Galdino Omalley Group Number: [id number] [address] PayID: [id number] [place] [address] Effective: 2015 Policy Number: [id number] [place] [employer] Galdino Omalley Expires: 2015 PayID: [id number] [address] [place] [address] Advance Directives Description No Information Available Problems [...] asthma Ana Paula Tafoya MD Active Onset: 07/31/2017 Lumbosacral spondylosis without Ana Paula Tafoya MD Active myelopathy Onset: 09/03/2017 Heartburn Ana Paula Tafoya MD Active Onset: 09/03/2017 Hypoglycemia Ana Paula Tafoya MD Active Onset: 02/11/2018 Electrocardiogram abnormal Ana Paula Tafoya MD Active Onset: 02/11/2018 Obesity Ana Paula Tafoya MD Active Family History Date Family Member(s) Observation Comments Onset: (age 47 Father Alcoholism Years) Mother Hypertension Mother Obesity Children 1 Siblings 7 Patient is the oldest of eight children : (age 27 First Brother due to Crushed Years) by a tree First Brother Hypertension Onset: (age 6 Fourth Brother Leukemia Years) Maternal Grandfather Stroke Onset: (age 63 Maternal Grandmother Emphysema Years) Social History Type Date Description Comments Sex Unknown Education Highest Level in library Completed Master's information Science Degree Marital Status Lives With Daughter Hand Dominance RIGHT-handed Tobacco Use Start: Unknown Never Smoked Cigarettes Smoking Status Reviewed: 04/04/18 Never Smoked Cigarettes ETOH Use Rarely consumes alcohol Tobacco Use Start: Unknown Patient has never smoked Exercise Type/Frequency Does aerobics sporadically Contraceptive Methods Current methods include condoms Allergies, Adverse Reactions, Alerts Date Description Reaction Status Severity Comments 08/27/2014 Ceclor Active Hives 09/28/2011 Tetracyclines & Related Hives (From Forestry Scientist Active Office) Medications Medication Date Status Form Strength Qnty SIG Indications Ordering Provider Topiramate 08/11 Active Tablets 25mg 60tab take one G43.109 Michelet, s tablet by MD Ana Paula mouth twice a day Sumatriptan 02/11 Active Tablets 50mg 27tab 1 by mouth G43.109 Michelet Succinate s at onset of MD Ana Paula migraine - may repeat in 2 hours. Furosemide 11/06 Active Tablets 20mg 30tab 1 by mouth R60.9 Michelet s every day MD Ana Paula as needed Fluoxetine HCL 06/07 Active Capsules 40mg 30cap take one F32.0 Michelet, s capsule by MD Ana Paula mouth every day. Famotidine Active Tablets 20mg one by R12 Unknown /0000 mouth once to twice a day as needed Celecoxib Active Capsules 200mg 30cap 1 by mouth M47.817 Michelet, s once daily MD Ana Paula as needed Excedrin Active Tablets 250-250-6 one tab Unknown Migraine / 5mg daily as needed Vitamin D Active Tablets 2000Unit 1 by mouth Unknown /0000 every day Amoxicillin/Clav 06/01 Hx Tablets 875-125mg 20tab 1 by mouth J01.90 Cunningha ulanate /2017 s twice a day Ansley barroso Potassium - 06/11 Fluticasone 06/01 Hx Suspension 50mcg/Act 16gm 2 sprays to J01.90 Cunningha Propionate each Ansley barroso - nostril 08/10 Amoxicillin/Clav 04/04 Hx Tablets 875-125mg 20tab 1 by mouth J01.90 Digiovann ulanate s every 12 a, Potassium - hours for Katina, 04/14 10 days MEDICAL SPECIALIST Cyclobenzaprine 02/25 Hx Tablets 10mg 30tab take 1 Digiovann HCL s tablet by a, - mouth every Katina, 09/03 8 hours as MEDICAL SPECIALIST needed for pain Naproxen Sodium 02/25 Hx Tablets 550mg 60tab 1 by mouth Digiovann s every 12 a, - hours for 2 Katina, 07/31 weeks then MEDICAL SPECIALIST as needed Amoxicillin/Clav 02/07 Hx Tablets 875-125mg 20tab 1 by mouth J01.90 Pranavha ulanate s twice a day Ansley barroso Potassium - 02/17 Azithromycin 07/25 Hx Tablets 500mg 7tabs 1 by mouth J01.90 Ely, every day Demetrio - 01/31 Azithromycin 06/22 Hx Tablets 250mg 6tabs 2 by mouth J01.90 Michelet, today, then MD Ana Paula - 1 by mouth 12/20 daily x more days Fluticasone 11/15 Hx Suspension 50mcg/Act 16uni instill 2 Everton Tafoya ts sprays in MD Ana Paula - each 09/03 nostril /2017 every day as needed Butalbital/Aceta 11/03 Hx Tablets 50-325-40 30tab 1 tap by G43.109 Michelet minophen/Caffein /2014 mg s mouth q2 MD Ana Paula e - hours as 02/11 needed headache Fluoxetine HCL 11/03 Hx Capsules 10mg 90cap 3 po daily F32.0 Michelet s x 2 weeks MD Ana Paula - then if 06/07 doing well, 2 po daily x 2 weeks then if doing well, 1 po daily Asmanex 11/03 Hx Aerosol 220mcg/In 1unit use 1 Canelo Tafoya h s inhalation MD Ana Paula Metered Doses - daily 08/10 (discard days after opening) - Amoxicillin 08/27 Hx Tablets 875mg 20tab 1 by mouth 461.9 Digiovan s twice a day a, - for 10 days Freddie 09/06 Asmanex 07/11 Hx Aerosol 220mcg/In 1unit inhale 1 Canelo Tafoya 30 h s puff every MD Ana Paula Tered Doses - day 11/03 Flonase 05/21 Hx Suspension 50mcg/Act 16uni instill 2 ts sprays in MD Ana Paula - each 06/07 nostr every day as needed Toprol XL 04/16 Hx Tablets ER 25mg 30tab 1 PO qd 24HR s MD Ana Paula - 06/07 Arcet 02/23 Hx Tablets 30tab take 1 s tablet by MD Ana Paula - mouth every 11/03 2 hours as needed for migraine(ma x daily 6 tablets) Astelin 06/09 Hx Solution 137mcg/Sp 30uni use 2 ray ts sprays in MD Ana Paula - each 06/07 twice daily as needed Fexofenadine HCL 06/09 Hx Tablets 60mg 60tab 1bid - Take s One Tablet MD Ana Paula - By Mouth 09/03 Twice Daily Fluoxetine HCL Hx Capsules 40mg 90cap 1 by mouth 296.21 Unknown /0000 s every day - 11/03 Methocarbamol Hx Tablets 500mg 1 by mouth Unknown /0000 tid as - needed 09/03 Mometasone Hx Suspension 50mcg/Act 51gm 2 sprays J30.1 Sammy Tafoya /0000 zheng Goss MD - nostril 08/10 Immunizations CPT Code Status Date Vaccine Reaction Lot # [id number] Given 08/11/2018 Pneumococcal 23 Immunization [id number] Adult Or Immunosuppressed Patient 36760 Given 03/04/2018 Afluria Or Fluvirin Flu Vac Intramuscular 20997 Given 04/02/2017 Afluria Or Fluvirin Flu Vac Intramuscular 37665 Given 01/25/2016 MMR Virus Immunization [id number] 78444 Given 05/06/2012 Tdap (Adacel) Ages 7 And Above VIS DATE 06/25/11 Only 09367 Given 04/16/2010 Afluria Or Fluvirin Flu Vac Intramuscular 73942 Given 05/21/2004 Immunization Td 7 Yrs Or Older Vital Signs Date Vital Result Comment 08/11/2018 9:23am Weight 357.00 lb Heart Rate 90 /min BP Systolic 128 mmHg BP Diastolic 78 mmHg Respiratory Rate 18 /min Height 66.75 inches 5'6.75" O2 % BldC Oximetry 98 % Ra BMI (Body Mass Index) 56.3 kg/m2 06/01/2018 11:19am Body Temperature 98.6 F Weight 345.00 lb Heart Rate 102 /min BP Systolic 130 mmHg BP Diastolic 82 mmHg Respiratory Rate 18 /min Height 66.75 inches 5'6.75" 02/11/18 SA,CLIENT SERVICE EXECUTIVE O2 % BldC Oximetry 98 % Ra BMI (Body Mass Index) 54.4 kg/m2 04/04/2018 10:03am Body Temperature 99.3 F tympanic Weight 344.44 lb Heart Rate 80 /min BP Systolic 130 mmHg BP Diastolic 86 mmHg Respiratory Rate 18 /min Height 66.75 inches 5'6.75" 02/11/18 ,CLIENT SERVICE EXECUTIVE O2 % BldC Oximetry 97 % Room Air BMI (Body Mass Index) 54.3 kg/m2 02/11/2018 9:10am Weight 341.00 lb Heart Rate 78 /min BP Systolic 128 mmHg BP Diastolic 84 mmHg Respiratory Rate 16 /min Height 66.75 inches 5'6.75" 02/11/18 SA,CLIENT SERVICE EXECUTIVE BMI (Body Mass Index) 53.8 kg/m2 Last Menstrual Period 3901288 02/11/18 SA,CLIENT SERVICE EXECUTIVE 11/06/2017 2:24pm Weight 366.00 lb Heart Rate [...] Probe NEGATIVE Negative Laboratory test 02/11/2018 [facility] Rapid Plasma NEGATIVE (Neg) 1, 2 finding Reagin HIV Combo By Eia 02/11/2018 [facility] HIV NON REACTIVE Non Reactive Combo [facility] Non Reactive 3 finding Virus Antibody S/CORatio(Darrius Laboratory test 02/11/2018 [facility] NT Pro BNP 37 pg/mL (0-125) 4 finding Laboratory test 01/30/2018 [facility] TSH 2.05 uIU/mL 0.35-4.94 5 finding CBC with Auto 01/30/2018 [facility] WBC 8.7 K/uL 4.1-11.0 Diff-fcmg RBC 4.24 M/uL 4.00-5.40 Hemoglobin 12.2 gm/dL [...] Basophils 0.0 K/uL 0.0-0.3 Comprehensive Met Panel-FCMG 01/30/2018 [facility] Sodium 138 mmol/L 135- 146 6 Potassium 3.8 mmol/L 3.5-5.2 Chloride# 103 mmol/L [...] 9 Anion Gap 9 mmol/L 5-15 10 Laboratory test finding 01/30/2018 [facility] Esr 20 mm/hr 0-20 Hemoglobin A1c 09/03/2017 [facility] Hemoglobin A1c 5.2 % 4.1-5.9 Estimated Average Glucose Calc 103 mg/dL 71-140 Laboratory test finding 09/03/2017 [facility] Cortisol 3.1 g/dL 11 Laboratory test finding 09/03/2017 [facility] TSH 2.33 uIU/mL 0.35-4.94 CBC with Auto Diff-fcmg 09/03/2017 [facility] WBC [...] K/uL 0.0-0.5 Abs Basophils 0.0 K/uL 0.0-0.3 Basic (BMP) 09/03/2017 [facility] Sodium 139 mmol/L 135-146 12 Potassium 4.5 mmol/L 3.5-5.2 Chloride# 103 mmol/L 97-110 13 Carbon Dioxide 25 mmol/L 24-34 Glucose 82 mg/dL 70-105 BUN 11 mg/dL 6-26 Creatinine 0.6 mg/dL 0.5-1.4 Calcium 9.1 mg/dL 8.5-10.2 Non Prabha Egfr >60 >60 14 Prabha Egfr >60 >60 15 Anion Gap 11 mmol/L 5-15 16 Hepatic Panel (LFT) 09/03/2017 [facility] Total Protein 6.1 g/dL 6.0-8.0 Albumin 4.1 g/dL 3.6-4.9 Total Bilirubin 0.4 mg/dL 0.1-1.3 Direct Bilirubin 0.1 mg/dL 0.0-0.4 Alkaline Phosphatase 68 U/L 24-140 Alt 15 U/L 3-42 Ast 14 U/L 8-42 CBC With Auto Diff 01/31/2017 [facility] WBC [...] Abs Basophils 0.0 K/uL 0.0-0.3 Laboratory test 01/31/2017 [facility] TSH 2.22 uIU/mL 0.35-4.94 finding GC/Chlamydia By Dna 01/31/2017 [facility] Chlamydia by Dna NEGATIVE Negative Probe Probe GC by Dna Probe NEGATIVE Negative Comprehensive Met Panel-FCMG 01/31/2017 [facility] Sodium 137 mmol/L 135- 146 17 Potassium 4.2 mmol/L 3.5-5.2 Chloride# 102 mmol/L 97-110 18 Carbon Dioxide 25 mmol/L 24-34 Glucose 78 mg/dL 70-105 BUN 12 mg/dL 6-26 Creatinine 0.7 mg/dL 0.5-1.4 Calcium 9.9 mg/dL 8.5-10.2 Total Protein 6.6 g/dL 6.0-8.0 Albumin 4.2 g/dL 3.6-4.9 Globulin 2.4 g/dL 2.0-3.5 A/G Ratio 1.8 Ratio 1.0-2.2 Total Bilirubin 0.4 mg/dL 0.1-1.3 Alkaline Phosphatase 49 U/L 24-140 Alt 13 U/L 3-42 Ast 15 U/L 8-42 Prabha Egfr >60 >60 19 Non Prabha Egfr >60 >60 20 Anion Gap 10 mmol/L 7-16 21 Laboratory test finding 01/31/2017 [facility] Vit D25oh 56 ng/mL 31-100 Lipid 01/31/2017 [facility] Cholesterol 156 mg/dL 50-199 Triglycerides 86 mg/dL 30-200 HDL 44 mg/dL 35-85 22 Chol/ HDL Ratio 3.5 ratio Low 3.7-5.6 VLDL 17 mg/dL 2-29 LDL (Calc) 94 mg/dL 20-99 23 HIV Combo By Eia 01/31/2017 [facility] Dry[facility] HIV NON REACTIVE Non Reactive Combo Treponema 01/31/2017 [facility] Treponema NEGATIVE (Neg) 24 Igg/Igm-RL Igg/Igm @ Laboratory test 01/25/2016 [facility] Surgical Path SEE NOTE 25 finding FCMG Laboratory test 01/12/2016 [facility] Measles Igm AB 0.31 26 finding Mumps Igg (Immune) POSITIVE AI 27 Rubella Igg AB POSITIVE AI 28 Laboratory test 11/03/2014 [facility] Pap Smear SEE NOTE - nl 29 finding Thin Prep Laboratory test 11/03/2014 [facility] [place] HPV Laboratory Allia 30 finding [phone] <SEE NOTE> CBC With Auto Diff 11/03/2014 [facility] WBC 5.8 K/uL 4.1-11. 31 0 RBC 4.55 M/uL 4.00-5.40 Hemoglobin 13.9 gm/dL [...] 9 mmol/L 6-14 Prabha Egfr >60 >60 32 Non Prabha Egfr >60 >60 33 Laboratory test finding 11/03/2014 [facility] TSH 1.99 uIU/mL 0.35-4.94 Vit D,25 Hydroxy 63 ng/mL 31-100 HIV Combo NON REACTIVE Laboratory test 04/16/2013 N2N/CCD Import Acetylcholine < 0.03 0.00- 0.24 34 finding Receptor AB nmol/L Achr Blocking Ab, Serum 19 % 0-25 [...] 30.8-34.3 Mean Platelet Volume 11.0 fL 8.9-12.4 Harvey # 0.52 K/uL 0.3-0.9 Harvey % 7.1 % 4.3-13.2 Neut# 4.75 K/uL [...] Triglycerides 128 mg/dL 16-231 Dna Probe N. Gono & 05/06/2012 N2N/CCD Import Dna Probe For [...] 30.8-34.3 Mean Platelet Volume 11.2 fL 8.9-12.4 Harvey # 0.68 K/uL 0.3-0.9 Harvey % 8.3 % 4.3-13.2 Neut# 5.40 K/uL [...] 62-185 Triglycerides 102 mg/dL 16-231 Laboratory test 02/13/2012 N2N/CCD Import Culture Throat See Note 48 finding Laboratory test 05/03/2011 N2N/CCD Import Cytology Pap See Note 49 finding LDL Cholesterol 04/26/2011 N2N/CCD Import Cholesterol 150 mg/dL 120-200 Profile HDL Cholesterol 59 mg/dL 29-83 LDL-Cholesterol 79 mg/dL 62-185 Triglycerides 60 mg/dL 16-231 Laboratory test finding 04/26/2011 N2N/CCD Import Anion [...] 30.8-34.3 Mean Platelet Volume 10.7 fL 8.9-12.4 Harvey # 0.60 K/uL 0.3-0.9 Harvey % 7.6 % 4.3-13.2 Neut# 5.05 K/uL [...] 53 White Blood Count 7.9 K/uL 3.1-10.7 Laboratory test finding 08/09/2010 N2N/CCD Import Culture [...] 30.8-34.3 Mean Platelet Volume 10.9 fL 8.9-12.4 Harvey # 0.7 K/uL 0.3-0.9 Harvey % 8.0 % 4.3-13.2 Neut# 5.7 K/uL [...] Unless otherwise specified, testing performed [place] [address] 3 S/CO Ratio >/=1.0 is REACTIVE. S/CO <5.0 is Low Reactive. S/CO >/= 5.0 is High Reactive. Effective Jan 24, 2017 all anti-HCV reactive samples are sent for quantitative PCR confirmation. 4 Unless otherwise specified, testing [place] [address] 5 prior to office visit in jan 6 Updated reference range on new analyzer 7 [...] REVIEWED Unless otherwise specified, testing performed by [place] [address] 12 Updated reference range on new analyzer [...] failure: <15 16 Updated Reference Range 17 Updated reference range on new analyzer 18 Updated reference range on new analyzer 19 Concerning GFR Guidelines for Americans: Normal function or mild renal disease, if clinically at risk: >/=60 mL/min Moderately decreased: 30-59 Severely decreased: 15-29 Renal failure: <15 20 Concerning GFR Guidelines: Normal function or mild [...] drugs that are excreted by the kidneys. 21 Updated reference range on new analyzer 22 Per NCEP ATP III Guidelines: Results lower than 40 mg/dL are suggestive of increased risk for coronary artery disease. Results > or=to 60 mg/dL are considered a negative risk factor. 23 Per NCEP ATP III Guidelines: Normal Population <130 Patients with medical conditions: CHD/DM Optimal: <100 Borderline high: 130-159 High: 160-189 Very high: >189 24 Unless otherwise specified, testing performed by [facility] [address] [place] [address] [address] [address] Surgical Pathology Report Specimen(s) Received A: Skin [...] AND PERIPHERAL MARGINS. Technical component processed at [facility], Histopathology, [address] [place] [address], [facility]. Diagnosis and reporting performed at [facility], [address] [place] [address]. As applicable, positive and negative controls for all immunohistochemical and/or special stains were reviewed and considered appropriate. Reported: 01/29/2016 18:37 Electronically Signed Out By Micaela Correa D.O. dorita This report may include one or more immunohistochemical or in-situ hybridization results. Testing has been developed and the performance characteristics were determined by [email or web address] as required by CLIA '88 regulations. The tests may not have been approved for a given specific use by the US Food and Drug Administration, but the FDA has determined that such approval is not necessary for clinical use. ICD9 Codes D23.9 Unless otherwise specified, testing performed by [facility] [address] [place] [address] 26 Reference range: 0.00 to 0.79 Unit: [...] 12 months post-infection or immunization. Performed by [facility], [address] [place] [address] [email or web address], Estiven Wolfe MD, Lab. Director Unless otherwise specified, testing performed by [facility] [address] IgG antibody to Mumps detected. This may indicate that the patient was exposed to Mumps through infection or vaccination. Unless otherwise specified, testing performed by [facility] [address] [address] 28 IgG antibody to Rubella detected. IgG antibody levels are at a level considered to indicate positive immunity. Unless otherwise specified, testing performed by [facility] [address] [address] 29 [facility] [place] [address] GYNECOLOGIC CYTOLOGY REPORT Accession Number: [id number] Source of Specimen(s): A: Thin Prep Cervical [...] 11/07/2014 Electronically Signed Out By Genevieve LAMA(ASCP) [facility] dss Unless otherwise specified, testing performed by [facility] [address] [address] [address] [place] [address] Amplified Molecular High Risk HPV Test Accession Number [id number] Specimen(s) Received A: High Risk HPV Thin Prep Cervical / Endocervical Pap Smear - One Vial Other Case Numbers: [id number] Diagnosis RISK GROUPS RESULTS High Risk NEGATIVE Tested for HPV Types (16, 18, 31, 33, 35, 39, 45, 51, 52, 56, 58, 59, 66, 68) Reported: 11/07/2014 16:16 Electronically Signed Out By Emma Carbone [place] lic 31 today 32 Concerning GFR Guidelines for Americans: Normal function or mild renal disease, if clinically at risk: >/=60 mL/min Moderately decreased: 30-59 Severely decreased: 15-29 Renal failure: <15 33 Concerning GFR Guidelines: Normal function or mild [...] drugs that are excreted by the kidneys. 34 Negative: 0.00 - 0.24 Borderline: 0.25 - 0.40 Positive: > 0.40 35 Negative: 0 - 25 Borderline: 26 - 30 Positive: >30 Results for this test are for research purposes only by the assay's business developer. The performance characteristics of this product have [...] diagnosis or response to therapy. Performed at: [address] [id number] Car Trimmer: Maged Mcgrath MD, Phone: [phone] Note: Persistent reduction for 3 months [...] D deficiency has been defined by the [place] of [employer] and an Endocrine Society practice guideline as a level of serum 25-OH vitamin D less than 20 ng/mL (1,2). The Endocrine Society went on to further define vitamin D insufficiency as a level between 21 and 29 ng/mL (2). 1. IOM ([place] [employer]). 2010. Dietary reference intakes for calcium and D. [place]: The National Academies Press. 2. Zeke MF, Vandana ARELLANO, Jay FELTON, et al. Evaluation, treatment, and prevention of vitamin D deficiency: an Endocrine Society clinical practice guideline. JCEM. 2010; 96(7):1911-30. Performed at: RN - [facility] [address] [id number] Car Trimmer: Carolina Reed MD, Phone: [phone] NEGATIVE FOR CHLAMYDIA TRACHOMATIS BY DNA [...] 48 NORMAL THROAT HECTOR 49 Cytology Laboratory [address] [place] [address], [address] [place] [address] CYTOLOGY REPORT Name: Galdino Omalley Gil : 1980 (Age: 30) Sex: F Location: [facility] Sec. #: [id number] Date Collected: 05/03/2011 Billing #: [id number] Date Received: 05/03/2011 Med. Rec. #: [id number] Requisition # [id number] Physician(s): ANA PAULA TAFOYA MD Source of Specimen: ENDOCERVICAL/ECTOCERVICAL THIN PREP Clinical Information: Date of Last Menstrual Period: 04/10/11 Menstrual History: Regular Specimen Adequacy: SATISFACTORY FOR EVALUATION. NO ENDOCERVICAL/ TRANSFORMATION ZONE. General Categorization: NEGATIVE FOR INTRAEPITHELIAL LESION OR MALIGNANCY. aminah Electronic Signature Rene Wilson MD Reported: 05/08/2011 Also seen by: DAINA Boyd (ASCP) Cytology Out[facility] ICD-9 Code(s) V72.31 50 Note: Persistent reduction [...] NORMAL THROAT HECTOR 55 Cytology Laboratory [address] [facility], [address] [place] [address] CYTOLOGY REPORT Name: Galdino Omalley : 1980 (Age: 29) Sex: F Location: [facility] Soc. Sec. #: [id number] Date Collected: 04/16/2010 Billing #: [id number] Date Received: 04/17/2010 Med. Rec. #: [id number] Requisition # [id number] Physician(s): ANA PAULA TAFOYA MD Source of Specimen: ENDOCERVICAL/ECTOCERVICAL THIN PREP Clinical Information: Date of Last Menstrual Period: 04/08/10 Menstrual History: Regular Specimen Adequacy: SATISFACTORY FOR EVALUATION. NO ENDOCERVICAL/ TRANSFORMATION ZONE. General Categorization: NEGATIVE FOR INTRAEPITHELIAL LESION OR MALIGNANCY. lgs Electronic Signature DAINA Amaya (ASCP) Reported: 04/23/2010 Also seen by:DAINA Amaya (ASCP) Cytology Outreach [facility] ICD-9 Code(s) V72.31 56 NORMAL THROAT HECTOR [...] may be found at [email or web address]. 59 [facility]ology [facility] [facility], [address] [place] [address] CYTOLOGY REPORT Name: Galdino Omalley : 1980 (Age: 27) Sex: F Location: [facility] Soc. Sec. #: [id number] Date Collected: 03/24/2008 Billing #: [id number] Date Received: 03/24/2008 Requisition # [id number] Physician(s): ANA PAULA TAFOYA MD Source of Specimen: ENDOCERVICAL/ECTOCERVICAL THIN PREP Clinical Information: Date of Last Menstrual Period: 03/07/08 Menstrual History:Regular Dysplasia/Cancer History:Abnormal Pap smear(s) Specimen Adequacy: SATISFACTORY FOR EVALUATION. ADEQUATE ENDOCERVICAL/TRANSFORMATION ZONE. General Categorization: NEGATIVE FOR INTRAEPITHELIAL LESION OR MALIGNANCY. adela Electronic Signature DAINA Jain (ASCP) Reported: 03/29/2008 Also seen by :DAINA Swanson ( ASCP) Cytology Outreach [facility] ICD-9 Code(s) V72.31 60 Specimen: [id number] - TEST: TSH FASTING TEST: TSH Specimen: 0401: [id number] - TESTS: LFT, C7, LDLP FASTING TEST: LFT QUERY: LIVER=TBILI,DBILI,IBILI,SGOT,SGPT,ALK PHOS,ALBUMIN TEST: C7 QUERY: IS THE PATIENT FASTING? Y QUERY: CARD 1=GLU, BUN, CRE, NA, K, CL, CO2, CALCIUM + GAP TEST: LDLP QUERY: IS THE PATIENT FASTING? Y QUERY: FASTING PROFILE INCLUDES CHOL, TRIG , HDL, + LDL Specimen: [id number] - TESTS: LFT, C7, LDLP FASTING TEST: LFT QUERY: LIVER=TBILI,DBILI,IBILI,SGOT,SGPT,ALK PHOS,ALBUMIN TEST: C7 QUERY: IS THE PATIENT FASTING? Y QUERY: CARD 1=GLU, BUN, CRE, NA, K, CL, CO2, CALCIUM + GAP TEST: LDLP QUERY: IS THE PATIENT FASTING? Y QUERY: FASTING PROFILE INCLUDES CHOL, TRIG, HDL, + LDL Specimen: [id number] - TEST: TSH FASTING TEST: TSH 61 Organism 1 ! BETA HEMOLYTIC STREP NON A QUANTITY ! MANY 62 NOTE: A NON-REACTIVE RESULT INDICATES THAT HIV-1 AND HIV-2 ANTIBODIES HAVE NOT BEEN FOUND IN THIS PATIENT SPECIMEN. A NON-REACTIVE RESULT, HOWEVER, DOES NOT PRECLUDE PREVIOUS EXPOSURE OF INFECTION WITH HIV. * [place] STATE LAW PROHIBITS THE REDISCLOSURE OF THIS [...] - 114 Procedures Date Code Description Status 08/11/2018 41817 Brief Emotional/Behav Assessment W/ Scoring Doc Per Completed Standard Inst 06/01/2018 49784 Measure Blood Oxygen Level Single Determination Completed 06/01/2018 74895 Electrocardiogram Complete Completed 04/04/2018 08399 Measure Blood Oxygen Level Single Determination Completed 02/11/2018 74816 Brief Emotional/Behav Assessment W/ Scoring Doc Per Completed Standard Inst 02/11/2018 10987 Electrocardiogram Complete Completed 02/25/2017 31310 X-Ray Spine Lumbosacral Ap & Lateral Completed 02/07/2017 66270 Measure Blood Oxygen Level Single Determination Completed 01/25/2016 31534 Shave Skin Lesion .6-1CM Trunk/Arm/Leg Completed Encounters Type Date Location Provider Dx Diagnosis Office Visit 06/01/2018 [facility] Ansley Concepcion J01.90 Acute sinusitis, 11:15a unspecified R07.1 Chest pain on breathing J20.9 Acute bronchitis, unspecified J45.30 Mild persistent asthma, uncomplicated R94.31 Abnormal electrocardiogram [ECG] [EKG] Z68.43 Body mass index (BMI) 50-59.9, adult Office Visit 04/04/2018 10:00a [facility] Katina Davey J01.90 Acute sinusitis, MEDICAL SPECIALIST unspecified Office Visit 02/11/2018 9:00a [facility] Ana Paula Tafoya MD Z01.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) w/o abn findings Z13.89 Encounter [...] 50-59.9 , adult Office Visit 11/06/2017 2:30p [facility] Ana Paula Tafoya MD R60.9 Edema, unspecified F32.0 Major depressive disorder, single episode, mild M47.817 Spondyls w/o myelopathy or radiculopathy, lumbosacr region Z68.43 Body mass index (BMI) 50-59.9 , adult Office Visit 09/03/2017 10:30a [facility] Ana Paula Tafoya MD M47.817 Spondyls w/ o myelopathy or radiculopathy, lumbosacr region R12 Heartburn F32.0 Major depressive disorder, single episode, mild E16.2 Hypoglycemia, unspecified E66.9 Obesity, unspecified Z68.43 Body mass index (BMI) 50-59.9 , adult Office Visit 07/31/2017 9:15a [facility] Ana Paula Tafoya MD F32.0 Major depressive disorder, single episode, mild E55.9 Vitamin D deficiency, unspecified R03.0 Elevated blood-pressure reading, w/o diagnosis of htn J30.1 Allergic rhinitis due to pollen G43.109 Migraine with aura, not intractable, w/o status migrainosus J45.30 Mild persistent asthma, uncomplicated M47.26 Other spondylosis with radiculopathy, lumbar region G47.9 Sleep disorder, unspecified Office Visit 02/25/2017 9:30a [facility] Katina Davey, M54.5 Low back pain MEDICAL SPECIALIST Office Visit 02/07/2017 3:15p [facility] Ansley Concepcion MD J01.90 Acute sinusitis, unspecified J45.30 Mild persistent asthma, uncomplicated Office Visit 01/31/2017 1:30p [facility] Ana Paula Tafoya MD Z01.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) w/o abn findings F32.0 Major depressive disorder, single episode, mild E55.9 Vitamin D deficiency, unspecified J30.1 Allergic rhinitis due to pollen G43.109 Migraine with aura, not intractable, w/o status migrainosus J45.30 Mild persistent asthma, uncomplicated Z11.4 Encounter for screening for human immunodeficiency virus Z11.3 Encntr screen for infections w sexl mode of transmiss Office Visit 07/25/2016 4:00p [facility] Demetrio Graves DO G43.109 Migraine with aura, not intractable, w/o status migrainosus J01.90 Acute sinusitis, unspecified Office Visit 12/21/2015 4:00p [facility] Ana Paula Tafoya MD Z01.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) w/o abn findings F32.0 Major depressive disorder, single episode, mild E55.9 Vitamin D deficiency, unspecified J30.1 Allergic rhinitis due to pollen G43.109 Migraine with aura, not intractable, w/o status migrainosus J45.30 Mild persistent asthma, uncomplicated D48.5 Neoplasm of uncertain behavior of skin Office Visit 06/22/2015 9:45a [facility] Ana Paula Tafoya MD J01.90 Acute sinusitis, unspecified Office Visit 06/07/2015 10:00a [facility] Ana Paula Tafoya MD F32.0 Major depressive disorder, single episode, mild E55.9 Vitamin D deficiency, unspecified R03.0 Elevated blood-pressure reading, w/o diagnosis of htn J30.1 Allergic rhinitis due to pollen E28.2 Polycystic ovarian syndrome J45.909 Unspecified asthma, uncomplicated G43.109 Migraine with aura, not intractable, w/o status migrainosus Office Visit 11/03/2014 8:15a [facility] Ana Paula Tafoya MD 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 296.21 Depressive Disorder Major Single Episode Mild 346.00 Migraine Classical W/O Intractable 493.00 Asthma Extrinsic Unspecified 477.0 Rhinitis Allergic Due To Pollen 268.9 Vitamin D Deficiency Unspec V73.89 Screening Examination Viral Diseases Other Spec Office Visit 08/27/2014 11:15a [facility] Freddie Davey, 465.9 URI Upper Respiratory MD Infections Acute Unspec Sites 461.9 Sinusitis Acute Unspec 382.00 Otitis Media Suppurative Acute Plan of Treatment Future Appointment(s):11/10/2018 8:55 am - Schedule, Laboratory at [facility]2018 9:15 am - Ana Paula Tafoya MD at [facility]08/11/2018 - Ana Paula Tafoya MDZ13.31 Encounter for screening for depressionComments:screening for depression is negative PHQ-2=0F32.0 Major depressive disorder, single episode, mildComments: doing well on fluoxetine -she would like to wean off - she is currently looking for a job - this isnot a good time to wean off medication. recommend she wait until she is settled in her new job and then will send me a portal message asking to decrease her dose to 30 mg daily.E55.9 Vitamin D deficiency, unspecifiedNew Labs:Vit D 25Oh, Scheduled: 11/10/18Comments:continue sqouzsvajxY60.0 Elevated blood-pressure reading, without diagnosis of hypertComments:blood pressure today is bsgcpyY04.1 Allergic rhinitis due to pollenComments:currently on no medication for this. she is allergic to dust. discussed rototic sbnzdqE34.109 Migraine with aura, not intractable, without status migrainoNew Medication:Topiramate 25 mg - take one tablet by mouth twice a dayNew Labs:Comprehensive Met Panel-[facility], Scheduled: 11/10/18Comments:has not tried sumatriptan yet - she would like to try topamaxFollow up:3 mos routine f/ u with nonfasting labs qsgqhF28.30 Mild persistent asthma, uncomplicatedComments :stopped her controlled medication and had 1 exacerbation in may 2018 - will follow.M47.26 Other spondylosis with radiculopathy, lumbar regionComments: treated by pain ilmgvxM68 KiplwodupZ95.2 Hypoglycemia, unspecifiedNew Labs: Hemoglobin A1c, Scheduled: 11/10/18Comments:last a1c was 5.2R94.31 Abnormal electrocardiogram [ECG] [EKG]E66.9 Obesity, unspecifiedComments:counseled about strategies for weight loss and the impact of weight on chronic medical problems.Work on healthy lifestyle, with regular exercise (20 min daily will help) and eat a healthy diet. formal diet plans work best. Counseled about how to plan his meals to meet his goal - 1/2 of the plate is low carb vegies, 1/4 of the plate is lean meat - this is the size of the palm of your hand.1/4 of the plate is starch - this includes potatoes, pasta, rice, bread, corn, peas, and carrots.Z68.43 Body mass index (BMI) 50-59.9, adultComments:the BMI is the ratio between height and weight . the goal BMI for your age is between 18 and 25. This means you are overweight. Recommend weight loss with healthy diet and regular exercise. 150 minof exercise weekly is the goal.
[2018-09-01] MEDS ORDERED: Ketorolac INJ* 30 MG/ML 1 ML VIAL IV PUSH ONE (01:29)
[2018-09-01] MEDS ORDERED: diPHENhydraMINE IV* 50 MG/ML 1 ml VIAL (BENADRYL) IV ONE (01:30)
[2018-09-01] MEDS ORDERED: Metoclopramide IV* 5 MG/ML 2 ML VIAL IV SLOW PU ONE (01:30)
--- NOTE | 2018-09-01 01:32 | ED ---
Headache - HPI Summary HPI Summary: Pt is a 38 y/o F presenting to the ED with a chief complaint of a migraine onset marble rubber on 08/31/18. The pt reports a ten year history of migraines which her doctor just put her on Topomax and Imitrex for. Around 1800, the pt began vomiting, and she reports five episodes of emesis. Normally, emesis alleviates the migraine, but it did not help this time. - History Of Current Complaint Chief Complaint: EDHeadache Stated Complaint: "MIGRAINE, THROWING UP, AND DIZZYY Time Seen by Provider: 09/01/18 01:13 Hx Obtained From: Patient Hx Last Menstrual Period: 05/13/18 Onset/Duration: Started hours ago, Still Present Initially Headache Was: Severe Currently Pain Is: Severe Timing: Constant, Hours Character: Migraine Location of Headache: Diffuse Aggravating Factor: Nothing Allevating Factors: Nothing Associated Signs And Symptoms: Nausea, Vomiting - Allergies/Home Medications Allergies/Adverse Reactions: Allergies Allergy/AdvReac Type Severity Reaction Status Date / Time cefaclor [From [facility]] Allergy Hives Verified 08/31/18 23:16 minocycline Allergy Hives Verified 08/31/18 23:16 PMH/Surg Hx/FS Hx/Imm Hx Previously Healthy: No Endocrine/Hematology History: Denies: Hx Diabetes Respiratory History: Reports: Hx Asthma Neurological History: Reports: Hx Migraine Infectious Disease History: No Infectious Disease History: Denies: Hx Clostridium Difficile, Hx Hepatitis, Hx Human Immunodeficiency Virus (HIV), Hx of Known/Suspected MRSA, Hx Shingles, Hx Tuberculosis, Hx Known/ Suspected VRE, Hx Known/Suspected VRSA, History Other Infectious Disease, Traveled Outside the [place] in Last 30 Days - Family History Known Family History: Positive: Hypertension, Respiratory Disease - asthma Negative: Cardiac Disease, Diabetes - Social History Alcohol Use: Occasionally Hx Substance Use: No Substance Use Type: Reports: None Hx Tobacco Use: No Smoking Status (MU): Never Smoked Tobacco Have You Smoked in the Last Year: No Review of Systems Positive: Vomiting, Nausea Positive: Headache All Other Systems Reviewed And Are Negative: Yes Physical Exam - Summary Physical Exam Summary: VITAL SIGNS: Reviewed. GENERAL: Patient is a well-developed and nourished female who is lying comfortable in the stretcher. Patient is not in any acute respiratory distress. HEAD AND FACE: No signs of trauma. No ecchymosis, hematomas or skull depressions. No sinus tenderness. EYES: PERRLA, EOMI x 2, No injected conjunctiva, no nystagmus. EARS: Hearing grossly intact. Ear canals and tympanic membranes are within normal limits. MOUTH: Oropharynx within normal limits. NECK: Supple, trachea is midline, no adenopathy, no JVD, no carotid bruit, no c- spine tenderness, neck with full ROM. CHEST: Symmetric, no tenderness at palpation LUNGS: Clear to auscultation bilaterally. No wheezing or crackles. CVS: Regular rate and rhythm, S1 and S2 present, no murmurs or gallops appreciated. ABDOMEN: Soft, non-tender. No signs of distention. No rebound no guarding, and no masses palpated. Bowel sounds are normal. EXTREMITIES: FROM in all major joints, no edema, no cyanosis or clubbing. NEURO: Alert and oriented x 3. No acute neurological deficits. Speech is normal and follows commands. SKIN: Dry and warm Triage Information Reviewed: Yes Vital Signs On Initial Exam: Initial Vitals Temp Pulse Resp BP Pulse Ox 98.2 F 97 15 151/100 98 08/31/18 23:11 08/31/18 23:11 08/31/18 23:11 08/31/18 23:11 08/31/18 23:11 Vital Signs Reviewed: Yes Diagnostics - Vital Signs Vital Signs Temp Pulse Resp BP Pulse Ox 08/31/18 23:11 98.2 F 97 15 151/100 98 - Laboratory Lab Statement: Any lab studies that have been ordered have been reviewed, and results considered in the medical decision making process. Re-Evaluation - Re-Evaluation 1st re-eval Re-Evaluation Time: 02:55 Change: Improved Comment: The pt feels better and is ready and agreeable to be discharged. Headache Course/Dx - Course Course Of Treatment: Pt is a 38 y/o F presenting to the ED with a chief complaint of a migraine onset marble rubber on 08/31/18. Around 1800, the pt began vomiting, and she reports five episodes of emesis. Normally, emesis alleviates the migraine, but it did not help this time. As of 254, the pt feels better after receiving Toradol, Benadryl, Lorazepam, and Reglan. The pt will be discharged home with a dx of headache, and she is agreeable with this plan. - Diagnoses Provider Diagnoses: Headache Discharge - Sign-Out/Discharge Documenting (check all that apply): Patient Departure Patient Received Moderate/Deep Sedation with Procedure: No - Discharge Plan Condition: Stable Disposition: HOME Referrals: Ana Paula Tafoya MD [Primary Care Provider] - Additional Instructions: Please follow up with your primary care provider in 2-3 days. Return to the emergency department with any new or worsening symptoms. - Attestation Statements Document Initiated by Scribe: Yes Documenting Scribe: Danisha Dangelo Provider For Whom Scribe is Documenting (Include Credential): Sera Epps MD. Scribe Attestation: Danisha Edwards, tirsoed for Sera Epps MD. on 09/01/18 at 0257. Status of Scribe Document: Ready
[2018-09-01] MEDS ORDERED: LORazepam INJ* 2 MG/ML 1 ML VIAL IV PUSH ONE (02:25)
[2018-09-01 03:06] VITALS: BP 145/86
== END 2018-09-01 03:07 | disposition home or self-care (01) ==
LOC: ED 23:08
DX: R51 Headache (principal); R11.2 Nausea with vomiting, unspecified
CPT/HCPCS: 96374; 96375; 96376; 99282; J1200; J1885; J2765

== ENCOUNTER 2019-06-18 11:50 | Day surgery (SDC) | payer OTHER ==
[~2019-06-18 11:50] MED LIST: Buffered Lidocaine 1% SYRIN* 1 ML/SYRINGE INTRADERM ONE; Lactated Ringers 1000 ML Bag* 1,000 ML IV SCH
[2019-06-18] MEDS ORDERED: Naloxone* 0.4 MG/ML 1 ML VIAL IV PRN (12:28)
[2019-06-18] MEDS ORDERED: Lidocaine 1% MPF ** 5 ML VIAL ONE (12:54)
[2019-06-18] MEDS ORDERED: Propofol* 500 MG/50 ML BTL ONE (12:54)
[2019-06-18] MEDS ORDERED: Ondansetron INJ* 2 MG/ML VIAL ONE (13:55)
[2019-06-18] MEDS ORDERED: Dexamethasone IV* 4 MG/ML 1 ML (4 MG) ONE (13:55)
[2019-06-18 14:58] VITALS: BP 136/76
--- NOTE | 2019-06-19 00:13 | PRO ---
CC: Dr. Ana Paula Tafoya; Dr. Osuna * EGD REPORT: DATE OF PROCEDURE: 06/18/19. PRIMARY CARE PHYSICIAN: Dr. Ana Paula Tafoya. INDICATION FOR PROCEDURE: Pre-bariatric exam, pill dysphagia. PROCEDURE PERFORMED: Complete esophagogastroduodenoscopy with biopsies. MEDICATIONS GIVEN: Please see Anesthesia service. DESCRIPTION OF PROCEDURE: After the EGD procedure including the risks, benefits , and alternatives with the risks not limited to perforation, surgery, missed lesions, and/or were explained to the patient, written informed consent was obtained, IV medication was given, and a bite block was placed between the teeth. The adult Olympus gastroscope was then inserted into the patient's oropharynx into the tubular esophagus. The tubular esophagus had mild GE junction variability. This was biopsied to rule out Jo. Also took a biopsy in the mid portion to rule out EOE; however, there was no stricturing or narrowing. The scope was advanced through the lower esophageal sphincter into the stomach. Direct views showed mild gastritis. This was biopsied for CLOtesting. On retroflexion, a 2-cm sliding hiatal hernia was appreciated. The scope was then advanced through the widely patent pylorus into the duodenal bulb, C-loop, distal duodenum; these were normal in appearance. The scope was then removed from the patient. She tolerated the procedure well. She returned to the recovery room in stable condition. IMPRESSION: 1. Complete esophagogastroduodenoscopy with biopsies. 2. Mild gastroesophageal junction variability, biopsied. 3. Biopsies were taken in the midesophagus to rule out EOE. 4. A 2-cm sliding hiatal hernia. 5. Gastritis. RECOMMENDATIONS: Likely, will start PPI daily with definitely benefit from a bariatric modality that will not increase reflux disease. I may recommend concurrent repair of hiatal hernia. [id number]/[facility] #: [id number] [facility]
== END 2019-06-18 14:58 | disposition home or self-care (01) ==
LOC: OR 11:50
PROVIDERS: ATTEND Internal Medicine Gastroenterology
DX: K21.0 Gastro-esophageal reflux disease with esophagitis (principal); R13.14 Dysphagia, pharyngoesophageal phase; E66.01 Morbid (severe) obesity due to excess calories; Z68.43 Body mass index [BMI] 50.0-59.9, adult; G47.33 Obstructive sleep apnea (adult) (pediatric); J45.20 Mild intermittent asthma, uncomplicated; F41.8 Other specified anxiety disorders; I49.3 Ventricular premature depolarization; M19.90 Unspecified osteoarthritis, unspecified site
CPT/HCPCS: 81025; 87077; 88305; 88342; J1100; J2405; J2704

== ENCOUNTER 2019-08-11 07:49 | Day surgery (SDC) | payer OTHER ==
[2019-08-11] MEDS ORDERED: Lidocaine 2% PF * 5 ML VIAL ONE (09:43)
[2019-08-11] MEDS ORDERED: Propofol* 10 MG/ML 20 ML BTL ONE (09:43)
[2019-08-11] MEDS ORDERED: Midazolam* 1 MG/ML 2 ML VIAL (2 MG) ONE (09:48)
[2019-08-11] MEDS ORDERED: fentaNYL* 50 MCG/ML 2 ML VIAL (100 MCG VIAL) ONE (09:49)
[2019-08-11] MEDS ORDERED: Ondansetron INJ* 2 MG/ML VIAL ONE (11:01)
[2019-08-11] MEDS ORDERED: Ketorolac INJ* 30 MG/ML 1 ML VIAL ONE (11:01)
[2019-08-11] MEDS ORDERED: Metoclopramide IV* 5 MG/ML 2 ML VIAL ONE (11:01)
[2019-08-11] MEDS ORDERED: Dexamethasone IV* 4 MG/ML 1 ML (4 MG) ONE (11:01)
[2019-08-11] MEDS ORDERED: DiMENhydriNATE IV* 50 MG/ML VIAL IV PUSH PRN (11:25)
[2019-08-11] MEDS ORDERED: Naloxone* 0.4 MG/ML 1 ML VIAL IV PRN (11:25)
[2019-08-11] MEDS ORDERED: Acetaminophen TAB* 325 MG PO PRN (11:25)
[2019-08-11] MEDS ORDERED: fentaNYL* 50 MCG/ML 2 ML VIAL (100 MCG VIAL) IV PRN (11:25)
[2019-08-11] MEDS ORDERED: oxyCODONE TAB* 5 MG TAB PO PRN (11:25)
[2019-08-11] MEDS ORDERED: Ibuprofen TAB* 600 MG PO PRN (12:07)
[2019-08-11 13:25] VITALS: BP 112/67
--- NOTE | 2019-08-12 01:45 | OP ---
DATE OF OPERATION: 08/11/19 - [facility] DATE OF : 76 SURGEON: Damion Posey MD. ANESTHESIOLOGIST: Dr. Grace. ANESTHESIA: General endotracheal anesthesia. PRE-OP DIAGNOSIS: Menorrhagia and intrauterine mass noted on ultrasound, fibroid uterus. POST-OP DIAGNOSIS: Menorrhagia and intrauterine mass noted on ultrasound, fibroid uterus. OPERATIVE PROCEDURE: Dilation, hysteroscopy, hysteroscopic myomectomy, and curettage. ESTIMATED BLOOD LOSS: Minimal, less than 20 cc. FINDINGS: Large, approximately 3 cm, submucous myoma within the endometrium originating from the fundus. In addition, there was a 4 mm sebaceous cyst on the left labia majora. The uterus sounded to 8. The fluid deficit was 550 cc. The cervix is midline. COMPLICATIONS: None. COUNTS: Sponge, lap, and needle count correct x2. CONDITION: The patient was brought to recovery room awake and in stable condition. DESCRIPTION OF PROCEDURE: The patient was brought to the operating room. When general anesthesia was found to be adequate, the patient was prepped and draped in the usual sterile fashion in the dorsal lithotomy position. Time-out was performed. Exam under anesthesia was performed with the above findings noted. The long weighted speculum was placed in the vagina. The anterior lip of the cervix was grasped with a single-tooth tenaculum. The cervix was gently and easily dilated with graduated dilators. The MyoSure was introduced with the above findings noted. The large MyoSure was used to remove the 3 cm submucous myoma. When the entire myoma was removed, the remainder of the endometrium appeared normal. There were no endometrial polyps seen. There were no other submucous fibroids seen. The curettage was then performed. The single tooth tenaculum was removed from the anterior lip of the cervix. Excellent hemostasis was noted. All instruments were removed from the vagina, and the patient was brought to the recovery room, awake, and in stable condition. [id number]/[facility] #: [id number] MTDD
== END 2019-08-11 12:50 | disposition home or self-care (01) ==
LOC: OR 07:49
PROVIDERS: ATTEND Obstetrics & Gynecology
DX: D25.0 Submucous leiomyoma of uterus (principal); N92.1 Excessive and frequent menstruation with irregular cycle; N94.89 Other specified conditions associated with female genital organs and menstrual cycle; G47.33 Obstructive sleep apnea (adult) (pediatric); M54.5 Low back pain; J45.909 Unspecified asthma, uncomplicated; K21.9 Gastro-esophageal reflux disease without esophagitis; K44.9 Diaphragmatic hernia without obstruction or gangrene; E66.01 Morbid (severe) obesity due to excess calories; E55.9 Vitamin D deficiency, unspecified; Z68.43 Body mass index [BMI] 50.0-59.9, adult; Z88.1 Allergy status to other antibiotic agents; Z88.8 Allergy status to other drugs, medicaments and biological substances; Z79.51 Long term (current) use of inhaled steroids
CPT/HCPCS: 81025; 88305; J1100; J1885; J2250; J2405; J2704; J2765; J3010

== ENCOUNTER 2019-08-31 07:30 | Inpatient (IN) ==
[2019-12-07] MEDS ORDERED: Lactated Ringers 1000 ml BAG 1,000 ML IV SCH (06:00)
[2019-12-07] MEDS ORDERED: Buffered Lidocaine 1% SYRIN 1 ml INTRADERM ONE ×2 (06:00→06:19)
[2019-12-07] MEDS ORDERED: Clindamycin 900 MG/D5W BAG 900 MG/50 ML BAG IVPB ONE (06:18)
[2019-12-07] MEDS ORDERED: Heparin 5000 UNITS/ML 1 mL VIAL ONE (06:18)
[2019-12-07] MEDS ORDERED: Propofol 10 MG/ML 20 ML BTL ONE (06:32)
[2019-12-07] MEDS ORDERED: Dexamethasone IV 4 MG/ML VIAL 1 ml VIAL ONE (06:32)
[2019-12-07] MEDS ORDERED: Acetaminophen IV 1 GM/100ML 100 ML ONE (06:32)
[2019-12-07] MEDS ORDERED: Glycopyrrolate IV 0.2 MG/ML 1 ML VIAL ONE (06:32)
[2019-12-07] MEDS ORDERED: Ondansetron 4 mg VIAL 2 MG/ML 2 ml VIAL ONE ×2 (06:32→10:53)
[2019-12-07] MEDS ORDERED: Sugammadex 500 MG/5 ML 5 ml VIAL IV PUSH ONE (06:32)
[2019-12-07] MEDS ORDERED: Succinylcholine 200 mg VIAL 20 mg/ml 10 ml VIAL (200 mg) ONE (06:32)
[2019-12-07] MEDS ORDERED: Rocuronium 50 mg VIAL 10 mg/ml 5 ml VIAL (50 mg) ONE (06:33)
[2019-12-07] MEDS ORDERED: Midazolam 2 mg/2 ml VIAL 1 mg/ml 2 ml VIAL (2 mg) ONE (06:33)
[2019-12-07] MEDS ORDERED: fentaNYL 100 mcg/2 ml 50 MCG/ML VIAL ONE (06:33)
[2019-12-07] MEDS ORDERED: Bupivacaine 0.25% EPI 200,000 30 ML SDV ONE (06:44)
[2019-12-07] MEDS ORDERED: Methylene Blue 0.5 % 50 MG/10 ML AMP IV ONE (06:44)
[2019-12-07] MEDS ORDERED: fentaNYL 100 mcg/2 ml 50 MCG/ML VIAL IV PRN (07:02)
[2019-12-07] MEDS ORDERED: Prochlorperazine 5 mg/ml 2 ml VIAL (10 mg) IV PRN (07:02)
[2019-12-07] MEDS ORDERED: Ondansetron 4 mg VIAL 2 MG/ML 2 ml VIAL IV PRN (07:02)
[2019-12-07] MEDS ORDERED: Levalbuterol 0.63MG/3ML NEB UNIT OF USE INH PRN (07:02)
[2019-12-07] MEDS ORDERED: diPHENhydraMINE IV 50 MG/ML 1 ml VIAL (BENADRYL) IV PRN (07:02)
[2019-12-07] MEDS ORDERED: Naloxone 0.4 mg VIAL 0.4 mg/ml 1 ml VIAL IV PRN (07:02)
[2019-12-07] MEDS ORDERED: HYDROmorphone 1 MG/1 ML SYRINGE IV PRN (07:02)
[2019-12-07] MEDS ORDERED: Sodium Citrate/Citric Acid LIQ 15 ML UDC ONE (07:17)
[2019-12-07] MEDS ORDERED: HYDROcodone/ACET. 7.5/325 LIQ 15 ML UDC PO PRN (10:24)
[2019-12-07] MEDS: HYDROmorphone 0.5 MG/0.5 ML SYRINGE IV SLOW PU PRN ×3 (11:56→23:10)
[2019-12-07] MEDS: Heparin 5000 UNITS/ML 1 mL VIAL SUBCUT SCH ×2 (13:35→22:00)
[2019-12-07] MEDS: Ondansetron 4 mg VIAL 2 MG/ML 2 ml VIAL IV PRN ×2 (17:21→23:25)
[2019-12-07] MEDS: Lactated Ringers 1000 ml BAG 1,000 ML IV SCH (18:43)
[2019-12-08] MEDS: Lactated Ringers 1000 ml BAG 1,000 ML IV SCH ×2 (01:30→09:07)
[2019-12-08] MEDS: HYDROmorphone 0.5 MG/0.5 ML SYRINGE IV SLOW PU PRN (06:05)
[2019-12-08] MEDS: Heparin 5000 UNITS/ML 1 mL VIAL SUBCUT SCH ×3 (06:05→22:43)
[2019-12-08] MEDS: Ondansetron 4 mg VIAL 2 MG/ML 2 ml VIAL IV PRN ×3 (06:11→22:42)
[2019-12-08] MEDS ORDERED: NS 0.9% 1000 ml BAG 1,000 ML IV SCH (16:00)
[2019-12-08] MEDS: D5W 1/2 NS KCl 20 meq 1000 ml 1,000 ML IV SCH (16:46)
[2019-12-09] MEDS: D5W 1/2 NS KCl 20 meq 1000 ml 1,000 ML IV SCH (00:29)
[2019-12-09 03:33] VITALS: BP 111/54
[2019-12-09] MEDS: Heparin 5000 UNITS/ML 1 mL VIAL SUBCUT SCH (06:32)
[2019-12-10] MEDS ORDERED: Scopolamine PATCH Remove NOTE PATCH OFF SCH (12:00)
== END 2019-12-09 11:50 | disposition home or self-care (01) | DRG 621 ==
LOC: AA 12-07 05:48 → SSU 12-07 10:24
PROVIDERS: ADMIT Surgery; ATTEND Surgery